=== PATIENT | female | born 2005 | race Caucasian/White ===

== ENCOUNTER 2024-03-05 11:06 | Emergency (ER) | payer MEDICAID, SELFPAY ==
[2024-03-05 11:38] VITALS: BP 147/81; PULSE 85; RESP 16; TEMP 37.4; O2SAT 98; BMI 32.4
--- NOTE | 2024-03-05 11:40 | XR_ITS ---
Examination: Knee, right , 3 views Technique: Knee AP, lateral, oblique 3 views Date and time of exam: March 05 2024-0 2 hours INDICATIONS: Patient fell today with into the right knee, right knee pain. FINDINGS: No fracture or dislocation Small knee effusion IMPRESSION: No fracture or dislocation
--- NOTE | 2024-03-05 11:41 | PD.EDLOWEX ---
Lower Extremity Injury RME/HPI General Chief Complaint: Extremity Injury, Lower Stated Complaint: RIGHT KNEE PAIN Time Seen by Provider: 03/05/24 11:40 Source: patient Arrival date/time: 03/05/24 11:06 18-year-old female known medical history presents to the emergency room with a chief complaint of right-sided knee pain that occurred after hitting herself on a coffee table 1 hour ago Mode of arrival: ambulatory Limitations: no limitations Related Data Home Medications ?Medication ?Instructions ?Recorded ?Confirmed diphenhydramine HCl 50 mg capsule 50 mg PO HS PRN Insomnia 04/03/22 04/03/22 (Banophen) fluoxetine 20 mg capsule 20 mg PO DAILY 04/03/22 04/03/22 Previous Rx's ?Medication ?Instructions ?Recorded ibuprofen 800 mg tablet 800 mg PO TID PRN pain #30 tabs 01/29/23 ibuprofen 800 mg tablet 800 mg PO TID PRN pain #30 tabs 01/30/23 ondansetron 4 mg disintegrating 4 mg PO Q8H PRN nausea and 01/30/23 tablet vomiting #10 tabs ibuprofen 800 mg tablet 800 mg PO TID PRN pain #30 tabs 06/25/23 ibuprofen 600 mg tablet 600 mg PO Q8H PRN fever or pain 10/06/23 #20 tabs Allergies Allergy/AdvReac Type Severity Reaction Status Date / Time orange Allergy Severe RASH, Verified 12/19/23 12:56 SWELLING Review of Systems Review of Systems Systems Reviewed: All systems reviewed, normal except as documented Constitutional Constitutional: Reports system reviewed and no additional complaints, except as documented, Denies fatigue, Denies fever(s), Denies headache(s) and Denies weakness Eyes Eyes: Reports system reviewed and no additional complaints, except as documented, Denies blurry vision and Denies change in vision ENT Ears, Nose, Mouth, and Throat: Reports system reviewed and no additional complaints, except as documented, Denies otalgia, Denies headache(s), Denies nasal congestion, Denies throat swelling and Denies vertigo Cardiovascular Cardiovascular: Reports system reviewed and no additional complaints, except as documented, Denies chest pain, Denies dyspnea and Denies dyspnea on exertion Respiratory Respiratory: Reports system reviewed and no additional complaints, except as documented, Denies chest congestion, Denies cough, Denies dyspnea, Denies dyspnea on exertion and Denies wheezing Gastrointestinal Gastrointestinal: Reports system reviewed and no additional complaints, except as documented, Denies abdominal pain, Denies cramping, Denies nausea and Denies vomiting Genitourinary Genitourinary: Reports system reviewed and no additional complaints, except as documented Musculoskeletal Musculoskeletal: Reports system reviewed and no additional complaints, except as documented, Reports arthralgias, Denies back pain and Reports joint swelling Integumentary/Breasts Skin/Breast: Reports system reviewed and no additional complaints, except as documented and Denies wounds Neurologic Neurologic: Reports system reviewed and no additional complaints, except as documented, Denies confusion, Denies headache(s), Denies lack of coordination, Denies vertigo and Denies weakness Psychiatric Psychiatric: Reports system reviewed and no additional complaints, except as documented, Denies anxiety, Denies confusion, Denies depression, Denies paranoia, Denies suicidal ideation and Denies tactile hallucinations Endocrine Endocrine: Reports system reviewed and no additional complaints, except as documented and Denies fatigue Hematologic/Lymphatic Hematologic/Lymphatic: Reports system reviewed and no additional complaints, except as documented and Denies lymphadenopathy Allergic/Immunologic Allergic/Immunologic: Reports system reviewed and no additional complaints, except as documented, Denies throat swelling, Denies urticaria and Denies wheezing ED Exam General Limitations: Present no limitations General appearance: Present alert and in no apparent distress Head Head exam: Present atraumatic Eye Eye exam: Present normal appearance, PERRL and EOMI ENT ENT exam: Present normal exam, normal oropharynx and mucous membranes moist Neck Neck exam: Present normal inspection, full ROM and trachea midline Chest Chest inspection: Present normal inspection and symmetric chest wall rise Respiratory Respiratory exam: Present normal lung sounds bilaterally Cardiovascular Cardiovascular exam: Present regular rate, normal rhythm and normal heart sounds Abdominal Exam Abdominal exam: Present soft and normal bowel sounds Extremities Exam Extremities exam: Present normal inspection and full ROM Expanded Lower Extremity Exam Hip/Pelvis exam: Present normal inspection Upper leg exam: Present normal inspection Knee exam: Present tenderness and swelling Lower leg exam: Present normal inspection Ankle exam: Present normal inspection Foot/toe exam: Present normal inspection Gait: observed and limited by pain Back Exam Back exam: Present normal inspection and full ROM Neurological Exam Neurological exam: Present alert, oriented X3 and CN II-XII intact Psychiatric Psychiatric exam: Present normal affect and normal mood Skin Skin exam: Present warm, dry, intact and normal color Course Quality Measures none Orders Category Date Time Status hipolito wrap [Splint / Immobilizer] STAT Care 03/05/24 13:01 Active XR knee RT 3V Stat Exams 03/05/24 11:40 Completed Vital Signs Vital signs: Vital Signs Temperature 99.3 F 03/05/24 11:38 Pulse Rate 85 03/05/24 11:38 Respiratory Rate 16 03/05/24 11:38 Blood Pressure 147/81 H 03/05/24 11:38 Pulse Oximetry (%) 98 03/05/24 11:38 Oxygen Delivery Method Room Air 03/05/24 11:38 O2 saturation 98% within normal limits Extremity Injury, Lower MDM Narrative MDM Narrative:: 18-year-old female known medical history presents to the emergency room with a chief complaint of right-sided knee pain that occurred after hitting herself on a coffee table 1 hour ago. Clinically the patient appears nontoxic and in no apparent distress. Physical examination shows mild tenderness and swelling to the right knee. X-ray was completed and was negative for any acute fracture. Patient was educated to follow-up with primary care provider and return to the emergency room for any evidence of worsening signs or symptoms Patient data External records reviewed:: [facility] previous records Clinical information provided by:: patient Social determinants that could affect healthcare access:: none Patient has the following chronic illnesses:: No chronic illness How is presenting disease/condition affected by chronic disease/condition?: no chronic disease Evaluation data The following diagnostics were reviewed and interpreted by me:: lab results and radiology exam(s) Lab and/or radiology exams considered but not ordered:: Labs and radiology exams considered and ordered Interpretation Summary: Right knee x-ray-no acute fracture Medications / Prescriptions Medications or Prescriptions considered but not ordered:: No medication given Medication administrations:: No medication given Consultations Consultation(s) initiated? (list below): No Diagnosis Extremity Injury, Lower Differential Diagnosis: ankle sprain and strain and other (Right knee fracture/right knee sprain) Most likely diagnosis given after review of the tests above:: Right knee sprain Admission Indicated Admission indicated?: not indicated Admission Request Was there a request for admission?: No Disposition Plan Disposition Plan: Discharge Discharge Attestation Discharge Attestation: The patient and all family members were given an opportunity to ask questions and understood the discharge instructions. Discharge instructions specifically effects, indications for sooner follow up or return to the emergency department, and the expected course of current diagnosis. Patient condition: Stable Discharge Plan Plan Patient Disposition: HOME (Self Care) Disposition Comment: Stable Prescriptions/Referrals Prescriptions/Med Rec: No Action diphenhydramine HCl [Banophen] 50 mg capsule 50 mg PO HS PRN (Reason: Insomnia) Patient Comments: TAKE 1 CAPSULE BY MOUTH ONCE DAILY AT BEDTIME NEEDED fluoxetine 20 mg capsule 20 mg PO DAILY Patient Comments: TAKE 1 CAPSULE BY MOUTH ONCE DAILY IN THE MORNING ibuprofen 800 mg tablet 800 mg PO TID PRN (Reason: pain) Qty: 30 0RF ondansetron 4 mg tablet,disintegrating 4 mg PO Q8H PRN (Reason: nausea and vomiting) Qty: 10 0RF ibuprofen 800 mg tablet 800 mg PO TID PRN (Reason: pain) Qty: 30 0RF ibuprofen 600 mg tablet 600 mg PO Q8H PRN (Reason: fever or pain) Qty: 20 0RF ibuprofen 800 mg tablet 800 mg PO TID PRN (Reason: pain) Qty: 30 0RF Referrals: Abhijit Desai MD [Primary Care Provider] - In 1 week Problem List Clinical Impression: Right knee sprain Patient/Caregiver Discharge Instructions Education Materials: ED Knee Sprain Additional Instructions: Please follow-up with your primary care provider in the next 24 to 48 hours. X-ray was completed and was negative for any acute fracture. For any evidence of worsening signs or symptoms please return to the emergency room immediately Print Language: Persian Stand Alone Forms: Kylie Award Info., Patient Portal Info Letter DORA/GERALDINE Supervising Physician DORA/GERALDINE Supervising Physician: Dr. Proctor
== END 2024-03-05 13:45 | disposition home or self-care (01) ==
PROVIDERS: Emergency Provider Emergency Medicine; PCP Family Medicine
DX: S83.91XA Sprain of unspecified site of right knee, initial encounter (principal); W22.03XA Walked into furniture, initial encounter
CPT/HCPCS: 73562; 99283

== ENCOUNTER 2024-03-18 10:28 | Emergency (ER) | payer MEDICAID, SELFPAY ==
--- NOTE | 2024-03-18 10:31 | EKG_ITS ---
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
[2024-03-18 10:50] VITALS: BP 123/70; PULSE 88; RESP 18; TEMP 36.9; O2SAT 97; BMI 33.6
--- NOTE | 2024-03-18 10:53 | XR_ITS ---
Examination: PA lateral chest 2 views TECHNIQUE: Upright PA lateral chest 2 views Exam date and time: March 18, 2024 1106 hours Comparison May 19, 2023 INDICATIONS: Arrhythmia chest pain squeezing sensation in the chest beginning one year ago worse since last night FINDINGS: Normal heart size Lungs are clear. The osseous structures are intact IMPRESSION: No active disease
--- NOTE | 2024-03-18 10:54 | PD.EDRME ---
Rapid Medical Screening Exam RME Arrival date/time: 03/18/24 10:28 18-year-old female presents to the emergency department complaints of dizziness chest pain and arm pain Chief Complaint: General Adult/Misc Complain Vital signs: Vital Signs Temperature 98.5 F 03/18/24 10:50 Pulse Rate 88 03/18/24 10:50 Respiratory Rate 18 03/18/24 10:50 Blood Pressure 123/70 03/18/24 10:50 Pulse Oximetry (%) 97 03/18/24 10:50 Oxygen Delivery Method Room Air 03/18/24 10:50
[2024-03-18 11:37] LABS: Basophils # (Auto) 0.1 Thou/mm3 (0.0-0.2); Basophils % (Auto) 1 % (0-2.5); Eosinophils # (Auto) 0.2 Thou/mm3 (0.0-0.5); Eosinophils % (Auto) 2 % (0-10); Hematocrit 39.5 % (36.0-46.0); Hemoglobin 13.5 g/dL (12.0-16.0); Immature Granulocytes % (Auto) 0 % (0-0); Immature Granulocytes Auto 0.02 Thou/mm3 (0.00-0.00); Lymphocytes # (Auto) 1.6 Thou/mm3 (1.0-5.0); Lymphocytes % (Auto) 15 % (10-50); Mean Corpuscular HGB Conc 34.2 g/dl (31.0-37.0); Mean Corpuscular Hemoglobin 29.3 pg (25.0-35.0); Mean Corpuscular Volume 86 fL (80-100); Monocytes # (Auto) 0.4 Thou/mm3 (0.0-0.8); Monocytes % (Auto) 4 % (0-12); Neutrophils # (Auto) 8.5 Thou/mm3 (1.8-7.7); Neutrophils % (Auto) 79 % (37-80); Nucleated Red Blood Cell % 0 /100 WBC (0); Platelet Count 402 Thou/mm3 (140-440); RDW Standard Deviation 39.8 fL (36.4-46.3); White Blood Count 10.8 Thou/mm3 (4.5-11.0)
[2024-03-18 11:56] LABS: Alanine Aminotransferase 22 U/L (10-49); Albumin, Serum 5.1 gm/dL (3.5-5.0); Albumin/Globulin Ratio 1.8 (1.2-2.2); Alkaline Phosphatase 63 U/L (46-116); Anion Gap 11 (7-16); Aspartate Amino Transferase 17 U/L (0-34); BUN/Creatinine Ratio 9 Ratio (12-20); Bilirubin,Total 0.4 mg/dL (0.3-1.2); Blood Urea Nitrogen 8 mg/dL (9-23); Carbon Dioxide 20.6 mMol/L (20.0-31.0); Chloride 108 mMol/L (98-107); Creatinine (Component) 0.9 mg/dL (0.6-1.3); Estimated Creatinine Clearance 104.6 mL/min (>60); Globulin 2.9 gm/dL (2.3-3.5); Glucose 110 mg/dL (74-106); Glucose Estimated Average 97 mg/dL (80-131); Osmolality,Calculated 278 (275-295); Potassium 3.9 mMol/L (3.4-5.1); Sodium 140 mMol/L (136-145); Troponin I < 0.002 ng/mL (0.0-0.045); eGFR > 60 See Note
[2024-03-18 12:04] LABS: HCG,Qualitative Serum Negative
--- NOTE | 2024-03-18 13:25 | PD.EDADULT ---
ED General RME/HPI General Chief complaint: General Adult/Misc Complain Stated complaint: LEFT ARM PAIN SINCE YESTERDAY, THEN CXP SINCE 2300 Time Seen by Provider: 03/18/24 13:21 Arrival date/time: 03/18/24 10:28 CC: Dizziness chest pain arm pain HPI RME / HPI RME / HPI narrative: 03/18/24 10:28 18-year-old female presents to the emergency department complaints of dizziness chest pain and arm pain HPI described as cramping sensation onset 11 PM last night lasting until 3 AM intermittent nature currently absent. Patient has a history of anxiety father bedside states the patient has had no cramping in the last 2 hours. Patient is awake alert oriented nontoxic-appearing not in any acute distress. Related Data Home Medications ?Medication ?Instructions ?Recorded ?Confirmed diphenhydramine HCl 50 mg capsule 50 mg PO HS PRN Insomnia 04/03/22 04/03/22 (Banophen) fluoxetine 20 mg capsule 20 mg PO DAILY 04/03/22 04/03/22 Previous Rx's ?Medication ?Instructions ?Recorded ibuprofen 800 mg tablet 800 mg PO TID PRN pain #30 tabs 01/29/23 ibuprofen 800 mg tablet 800 mg PO TID PRN pain #30 tabs 01/30/23 ondansetron 4 mg disintegrating 4 mg PO Q8H PRN nausea and 01/30/23 tablet vomiting #10 tabs ibuprofen 800 mg tablet 800 mg PO TID PRN pain #30 tabs 06/25/23 ibuprofen 600 mg tablet 600 mg PO Q8H PRN fever or pain 10/06/23 #20 tabs Allergies Allergy/AdvReac Type Severity Reaction Status Date / Time orange Allergy Severe RASH, Verified 03/18/24 10:31 SWELLING Review of Systems Review of Systems Narrative Review of Systems: GEN: No fever, no chills, no weight loss EYES: No discharge, no visual changes, no pain HEENT: No ear pain, no congestion, no sore throat PULM: No shortness of breath, no cough, no congestion CV: + chest pain, no dyspnea on exertion, no palpitations GI: No nausea, no vomiting, no diarrhea, no pain, no constipation : No frequency, no urgency, no dysuria MUSC/SKEL: No joint pain, no back pain SKIN: No rash PSYCH: No hallucinations, no depression HEME/LYMPH: No easy bleeding or bruising tendencies NEURO: No weakness, no headache Past Medical History Past Medical History CARDIAC: Negative Congestive Heart Failure RESPIRATORY: Negative Chronic Obstructive Pulmonary Disease (COPD) GENITOURINARY: Negative Renal Disease ENDOCRINE: Negative Diabetes Mellitus Type 1 or Diabetes Mellitus Type 2 PSYCHO/SOCIAL: Positive Depression and Anxiety Social History SMOKING STATUS: Heavy (> 1 pack/day) SUBSTANCE USE: marijuana ED Exam Narrative Physical exam: [General: Obese, anxious but not in any acute distress Head normocephalic HEENT: Within acceptable limits Neck is supple nontender Chest equal chest rise nontender to palpation Respiratory: Clear to auscultation no wheezes crackles or rubs CV: Rate rhythm is regular no murmurs rubs or clicks Abdomen is distended secondary to body habitus soft nontender no masses positive bowel sounds all 4 quadrants Back: No CVA tenderness no spinous process tenderness from cervical spine thoracic and lumbar spine Skin: Intact no petechiae rash induration ulceration or crepitus Extremities: Moving all extremity against resistance cap refill less than 2 seconds neurosensory intact Neuro: Awake alert oriented x3 Glascow coma 15 no focal deficits] Course Quality Measures VTE prophylaxis Orders Category Date Time Status EKG (ED ONLY) *Do not use* NOW Care 03/18/24 10:31 Completed EKG (ED Only) Stat Exams 03/18/24 10:31 Draft XR chest 2V Stat Exams 03/18/24 10:53 Completed A1C [Glycohemoglobin w (eAG)] Stat Lab 03/18/24 11:22 Completed CBC Stat Lab 03/18/24 11:22 Completed Comprehensive Metabolic Panel Stat Lab 03/18/24 11:22 Completed HCG,Qualitative Serum Stat Lab 03/18/24 11:22 Completed Troponin I Stat Lab 03/18/24 11:22 Completed Vital Signs Vital signs: Vital Signs Temperature 98.5 F 03/18/24 10:50 Pulse Rate 88 03/18/24 10:50 Respiratory Rate 18 03/18/24 10:50 Blood Pressure 123/70 03/18/24 10:50 Pulse Oximetry (%) 97 03/18/24 10:50 Oxygen Delivery Method Room Air 03/18/24 10:50 [facility] Patient data External records reviewed:: [facility] previous records Clinical information provided by:: patient and parent Social determinants that could affect healthcare access:: none Patient has the following chronic illnesses:: Anxiety How is presenting disease/condition affected by chronic disease/condition?: exacerbated by Evaluation data The following diagnostics were reviewed and interpreted by me:: lab results and radiology exam(s) Lab and/or radiology exams considered but not ordered:: EKG performed at 1049 shows a ventricular rate of 101 MN interval 1515 QRS of 75 QTc of 353 sinus tachycardia. CBC shows no acute leukocytosis anemia thrombocytopenia CMP shows no significant electrolyte imbalances renal impairment transaminitis or T. bili elevation. Chest x-ray as interpreted by me read by radiology as negative for any acute finding. Interpretation Summary: Chest wall pain possible cramping Medications Medications considered but not ordered:: None none Medication administrations:: None Consultations Consultation(s) initiated? (list below): No Diagnosis Differential Diagnosis ED Complaint MDM: Costochondritis intercostal irritation pleuritic pain Most likely diagnosis given after review of the tests above:: Chest wall pain Admission Indicated Admission indicated?: not indicated Explain why admission is indicated or not indicated:: Stable for outpatient follow-up Admission Request Was there a request for admission?: No Disposition Plan Disposition Plan: Discharge Discharge Attestation Discharge Attestation: The patient and all family members were given an opportunity to ask questions and understood the discharge instructions. Discharge instructions specifically effects, indications for sooner follow up or return to the emergency department, and the expected course of current diagnosis. Patient condition: Stable Medical Decision Making Differential Diagnosis Differential Diagnosis: Costochondritis intercostal irritation pleuritic pain Lab Data 03/18/24 11:22 03/18/24 11:22 Labs: Lab Results 03/18/24 Range/Units 11:22 WBC 10.8 (4.5-11.0) Thou/mm3 RBC 4.60 (4.00-5.20) Miln/mm3 Hgb 13.5 (12.0-16.0) g/dL Hct 39.5 (36.0-46.0) % MCV 86 (80-100) fL MCH 29.3 (25.0-35.0) pg MCHC 34.2 (31.0-37.0) g/dl RDW Std Deviation 39.8 (36.4-46.3) fL Plt Count 402 (140-440) Thou/mm3 Neut % (Auto) 79 (37-80) % Lymph % (Auto) 15 (10-50) % [place] % (Auto) 4 (0-12) % Eos % (Auto) 2 (0-10) % Baso % (Auto) 1 (0-2.5) % Neut # (Auto) 8.5 H (1.8-7.7) Thou/mm3 Lymph # (Auto) 1.6 (1.0-5.0) Thou/mm3 [place] # (Auto) 0.4 (0.0-0.8) Thou/mm3 Eos # (Auto) 0.2 (0.0-0.5) Thou/mm3 Baso # (Auto) 0.1 (0.0-0.2) Thou/mm3 Immature Gran # (Auto) 0.02 H (0.00-0.00) Thou/mm3 Absolute Nucleated RBC 0.00 (0.00-0.00) Thou/mm3 Immature Gran % 0 (0-0) % Nucleated RBC % 0 (0) /100 WBC Sodium 140 (136-145) mMol/L Potassium 3.9 (3.4-5.1) mMol/L Chloride 108 H (98-107) mMol/L Carbon Dioxide 20.6 (20.0-31.0) mMol/L Anion Gap 11 (7-16) BUN 8 L (9-23) mg/dL Creatinine 0.9 (0.6-1.3) mg/dL Estim Creat Clear Calc 104.6 (>60) mL/min eGFR > 60 (60 - ) See Note BUN/Creatinine Ratio 9 L (12-20) Ratio Glucose 110 H (74-106) mg/dL Estimated Ave Glu mg/dL 97 (80-131) mg/dL Hemoglobin A1c 5.0 (4.8-6.0) % Hgb Calculated Osmolality 278 (275-295) Calcium 10.0 (8.3-10.6) mg/dL Corrected Calcium 10.0 (8.5-10.1) mg/dL Total Bilirubin 0.4 (0.3-1.2) mg/dL AST 17 (0-34) U/L ALT 22 (10-49) U/L Alkaline Phosphatase 63 (46-116) U/L Troponin I < 0.002 (0.0-0.045) ng/mL Total Protein 8.0 (5.7-8.2) gm/dL Albumin 5.1 H (3.5-5.0) gm/dL Globulin 2.9 (2.3-3.5) gm/dL Albumin/Globulin Ratio 1.8 (1.2-2.2) HCG, Qual Negative Discharge Plan Plan Patient Disposition: HOME (Self Care) Patient condition on transfer: Stable Prescriptions/Referrals Prescriptions/Med Rec: No Action diphenhydramine HCl [Banophen] 50 mg capsule 50 mg PO HS PRN (Reason: Insomnia) Patient Comments: TAKE 1 CAPSULE BY MOUTH ONCE DAILY AT BEDTIME NEEDED fluoxetine 20 mg capsule 20 mg PO DAILY Patient Comments: TAKE 1 CAPSULE BY MOUTH ONCE DAILY IN THE MORNING ibuprofen 800 mg tablet 800 mg PO TID PRN (Reason: pain) Qty: 30 0RF ondansetron 4 mg tablet,disintegrating 4 mg PO Q8H PRN (Reason: nausea and vomiting) Qty: 10 0RF ibuprofen 800 mg tablet 800 mg PO TID PRN (Reason: pain) Qty: 30 0RF ibuprofen 600 mg tablet 600 mg PO Q8H PRN (Reason: fever or pain) Qty: 20 0RF ibuprofen 800 mg tablet 800 mg PO TID PRN (Reason: pain) Qty: 30 0RF Referrals: Abhijit Desai MD [Primary Care Provider] - In 1 week Problem List Clinical Impression: Chest wall pain Patient/Caregiver Discharge Instructions Education Materials: ED Chest Pain, Noncardiac Additional Instructions: Ibuprofen or Tylenol acute diarrhea over the reoccurrence of these follow-up with your primary care doctor. Print Language: Latvian Stand Alone Forms: Kylie Award Info., Patient Portal Info Letter PA/CLOTHING PATTERN PREPARER Supervising Physician PA/CLOTHING PATTERN PREPARER Supervising Physician: Jatinder Napoles ENP
[2024-03-18 14:19] VITALS: BP 125/74; PULSE 76; RESP 19; TEMP 37.1; O2SAT 99
== END 2024-03-18 14:26 | disposition home or self-care (01) ==
PROVIDERS: Nurse Practitioner Primary Care; Emergency Provider Emergency Medicine; PCP Family Medicine
DX: R07.89 Other chest pain (principal); R00.0 Tachycardia, unspecified
CPT/HCPCS: 36415; 71046; 80053; 83036; 84484; 84703; 85025; 93005; 99283

== ENCOUNTER 2024-03-18 21:35 | Emergency (ER) | payer MEDICAID, SELFPAY ==
[2024-03-18 21:37] VITALS: BMI 33.6
[2024-03-18 22:09] VITALS: BP 142/88; PULSE 111; RESP 18; TEMP 37.6; O2SAT 99
--- NOTE | 2024-03-18 22:27 | PD.EDRME ---
Rapid Medical Screening Exam RME Arrival date/time: 03/18/24 21:35 18-year-old female presents emergency department complaining of sore throat and chest pain. Chief Complaint: Anxiety Time Seen by Provider: 03/18/24 22:23 Vital signs: Vital Signs Temperature 99.6 F 03/18/24 22:09 Pulse Rate 111 H 03/18/24 22:09 Respiratory Rate 18 03/18/24 22:09 Blood Pressure 142/88 H 03/18/24 22:09 Pulse Oximetry (%) 99 03/18/24 22:09 Oxygen Delivery Method Room Air 03/18/24 22:09 Vital signs reviewed by provider: Yes
[2024-03-18 23:00] LABS: Strep A Rapid Negative (Negative)
[2024-03-18 23:36] LABS: Amphetamine/Methamp Scrn,U Negative (Negative); Barbiturate Screen,Urine Negative (Negative); Benzodiazepines Screen,Urine Negative (Negative); Benzoylecgonine Screen, Ur Negative (Negative); Fentanyl Screen,Urine Negative (Negative); Opiate Screen,Urine Negative (Negative); THC Screen,Urine Positive (Negative)
--- NOTE | 2024-03-18 23:53 | EDNOTE_ITS ---
ED Anxiety RME/HPI General Chief Complaint: Anxiety Stated Complaint: ''IM HAVING A HEART ATTACK Time Seen by Provider: 03/18/24 22:23 Source: patient Arrival date/time: 03/18/24 21:35 18-year-old female presents emergency department complaining of sore throat and chest pain. Patient reports was seen earlier today in the ER and then discharged. Patient reports is still having some chest pain but now reports has a sore throat. Patient reports has history of anxiety and is a daily smoker of cigarettes and marijuana. Mode of arrival: ambulatory Limitations: no limitations RME / HPI RME / HPI narrative: 03/18/24 21:35 18-year-old female presents emergency department complaining of sore throat and chest pain. Related Data Home Medications ?Medication ?Instructions ?Recorded ?Confirmed diphenhydramine HCl 50 mg capsule 50 mg PO HS PRN Insomnia 04/03/22 04/03/22 (Banophen) fluoxetine 20 mg capsule 20 mg PO DAILY 04/03/22 04/03/22 Previous Rx's ?Medication ?Instructions ?Recorded ibuprofen 800 mg tablet 800 mg PO TID PRN pain #30 tabs 01/29/23 ibuprofen 800 mg tablet 800 mg PO TID PRN pain #30 tabs 01/30/23 ondansetron 4 mg disintegrating 4 mg PO Q8H PRN nausea and 01/30/23 tablet vomiting #10 tabs ibuprofen 800 mg tablet 800 mg PO TID PRN pain #30 tabs 06/25/23 ibuprofen 600 mg tablet 600 mg PO Q8H PRN fever or pain 10/06/23 #20 tabs ibuprofen 600 mg tablet 600 mg PO Q8H PRN pain #20 tabs 03/18/24 Allergies Allergy/AdvReac Type Severity Reaction Status Date / Time orange Allergy Severe RASH, Verified 03/18/24 10:31 SWELLING Review of Systems Review of Systems Systems Reviewed: All systems reviewed, normal except as documented Constitutional Constitutional: Reports system reviewed and no additional complaints, except as documented, Denies body ache(s), Denies chills and Denies fever(s) Eyes Eyes: Reports system reviewed and no additional complaints, except as documented and Denies change in vision ENT Ears, Nose, Mouth, and Throat: Reports system reviewed and no additional complaints, except as documented, Denies disequilibrium, Denies dizziness, Reports sore throat and Denies vertigo Cardiovascular Cardiovascular: Reports system reviewed and no additional complaints, except as documented, Reports chest pain and Denies dyspnea Respiratory Respiratory: Reports system reviewed and no additional complaints, except as documented, Denies chest congestion, Denies cough and Denies dyspnea Gastrointestinal Gastrointestinal: Reports system reviewed and no additional complaints, except as documented, Denies abdominal pain, Denies nausea and Denies vomiting Musculoskeletal Musculoskeletal: Reports system reviewed and no additional complaints, except as documented, Denies abnormal gait and Denies arthralgias Integumentary/Breasts Skin/Breast: Reports system reviewed and no additional complaints, except as documented, Denies erythema, Denies rash and Denies wounds Neurologic Neurologic: Reports system reviewed and no additional complaints, except as documented, Denies abnormal gait, Denies disequilibrium, Denies dizziness and Denies vertigo Past Medical History Past Medical History CARDIAC: Negative Congestive Heart Failure RESPIRATORY: Negative Chronic Obstructive Pulmonary Disease (COPD) GENITOURINARY: Negative Renal Disease ENDOCRINE: Negative Diabetes Mellitus Type 1 or Diabetes Mellitus Type 2 PSYCHO/SOCIAL: Positive Depression and Anxiety Social History SMOKING STATUS: Current every day smoker SUBSTANCE USE: marijuana ED Exam General Limitations: Present no limitations General appearance: Present alert and in no apparent distress Head Head exam: Present atraumatic Eye Eye exam: Present normal appearance, PERRL and EOMI ENT ENT exam: Present normal exam, normal oropharynx and mucous membranes moist Expanded ENT Exam Throat exam: Present tonsillar erythema; Absent tonsillomegaly or tonsillar exudate Neck Neck exam: Present normal inspection, full ROM and trachea midline Chest Chest inspection: Present normal inspection and symmetric chest wall rise Respiratory Respiratory exam: Present normal lung sounds bilaterally Cardiovascular Cardiovascular exam: Present regular rate, normal rhythm and normal heart sounds Abdominal Exam Abdominal exam: Present soft and normal bowel sounds Extremities Exam Extremities exam: Present normal inspection and full ROM Back Exam Back exam: Present normal inspection and full ROM Neurological Exam Neurological exam: Present alert, oriented X3 and CN II-XII intact Psychiatric Psychiatric exam: Present normal affect and normal mood Skin Skin exam: Present warm, dry, intact and normal color Course Quality Measures none Orders Category Date Time Status EKG (ED ONLY) *Do not use* NOW Care 03/18/24 22:27 Completed EKG (ED Only) Stat Exams 03/18/24 22:27 Ordered Drug Screen,Urine Stat Lab 03/18/24 23:00 Completed Strep A Rapid Stat Lab 03/18/24 22:43 Completed Vital Signs Vital signs: Vital Signs Temperature 99.6 F 03/18/24 22:09 Pulse Rate 111 H 03/18/24 22:09 Respiratory Rate 18 03/18/24 22:09 Blood Pressure 142/88 H 03/18/24 22:09 Pulse Oximetry (%) 99 03/18/24 22:09 Oxygen Delivery Method Room Air 03/18/24 22:09 99% room air within normal limits Anxiety MDM Narrative MDM Narrative: 18-year-old female presents emergency department complaining of sore throat and chest pain. Patient reports was seen earlier today in the ER and then discharged. Patient reports is still having some chest pain but now reports has a sore throat. Patient reports has history of anxiety and is a daily smoker of cigarettes and marijuana. Patient GCS 15 and appears anxious. EKG sinus tach 119. Patient appears to be in any respiratory distress with no adventitious lung sounds on auscultation. Strep swab negative. Patient data External records reviewed:: [facility] previous records Clinical information provided by:: patient Social determinants that could affect healthcare access:: none Patient has the following chronic illnesses:: See chart How is presenting disease/condition affected by chronic disease/condition?: exacerbated by Evaluation data The following diagnostics were reviewed and interpreted by me:: lab results and EKG tracing(s) Lab and/or radiology exams considered but not ordered:: Ordered Interpretation Summary: Interpreted by me Medications / Prescriptions Medications or Prescriptions considered but not ordered:: N/A Medication administrations:: N/A Consultations Consultation(s) initiated? (list below): No Diagnosis Differential diagnosis anxiety: acute anxiety Most likely diagnosis given after review of the tests above:: Viral infection Anxiety Marijuana use Admission Indicated Admission indicated?: not indicated Admission Request Was there a request for admission?: No Disposition Plan Disposition Plan: Discharge Discharge Attestation Discharge Attestation: The patient and all family members were given an opportunity to ask questions and understood the discharge instructions. Discharge instructions specifically effects, indications for sooner follow up or return to the emergency department, and the expected course of current diagnosis. Patient condition: Stable Discharge Plan Plan Patient Disposition: HOME (Self Care) Disposition Comment: Stable Prescriptions/Referrals Prescriptions/Med Rec: New ibuprofen 600 mg tablet 600 mg PO Q8H PRN (Reason: pain) Qty: 20 0RF No Action diphenhydramine HCl [Banophen] 50 mg capsule 50 mg PO HS PRN (Reason: Insomnia) Patient Comments: TAKE 1 CAPSULE BY MOUTH ONCE DAILY AT BEDTIME NEEDED fluoxetine 20 mg capsule 20 mg PO DAILY Patient Comments: TAKE 1 CAPSULE BY MOUTH ONCE DAILY IN THE MORNING ibuprofen 800 mg tablet 800 mg PO TID PRN (Reason: pain) Qty: 30 0RF ondansetron 4 mg tablet,disintegrating 4 mg PO Q8H PRN (Reason: nausea and vomiting) Qty: 10 0RF ibuprofen 800 mg tablet 800 mg PO TID PRN (Reason: pain) Qty: 30 0RF ibuprofen 600 mg tablet 600 mg PO Q8H PRN (Reason: fever or pain) Qty: 20 0RF ibuprofen 800 mg tablet 800 mg PO TID PRN (Reason: pain) Qty: 30 0RF Problem List Clinical Impression: Viral infection, Anxiety, Marijuana use Patient/Caregiver Discharge Instructions Education Materials: ED Anxiety Reaction, ED Viral Syndrome (Adult) Additional Instructions: Drink plenty of fluids and get plenty of rest. Avoids smoking if possible. Take Tylenol or ibuprofen as needed for pain. Follow-up with primary care provider in 2 to 3 days. Return to the emergency department for any worsening symptoms or as needed. Print Language: Mozambican Stand Alone Forms: Kylie Award Info., Patient Portal Info Letter PA/GERALDINE Supervising Physician DORA/GERALDINE Supervising Physician: Dr. Cordero
== END 2024-03-19 00:05 | disposition home or self-care (01) ==
LOC: SERX 03-19 00:21
PROVIDERS: Emergency Provider Emergency Medicine
DX: B34.9 Viral infection, unspecified (principal); F12.980 Cannabis use, unspecified with anxiety disorder
CPT/HCPCS: 80307; 87651; 93005; 99283

== ENCOUNTER 2024-05-23 15:50 | Emergency (ER) | payer MEDICAID, SELFPAY ==
[2024-05-23 16:07] VITALS: BP 151/91; PULSE 109; RESP 18; TEMP 37.3; O2SAT 99; BMI 33.6
--- NOTE | 2024-05-23 16:27 | EKG_ITS ---
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) Nicho Order Number: [id number] Reading MD: Tete Monsalve ([facility]) Nicho Measurements Intervals [place] Rate: 93 P: 67 LA: 120 QRS: 92 QRSD: 85 T: 46 QT: 318 QTc: 397 Interpretive Statements SINUS RHYTHM WITH MARKED SINUS ARRHYTHMIA BORDERLINE RIGHT AXIS DEVIATION [QRS AXIS > 90] Compared to ECG 03/18/2024 10:49:19 Sinus tachycardia no longer present Short LA interval no longer present /store/[id number].pdf
--- NOTE | 2024-05-23 16:27 | XR_ITS ---
Examination: PA lateral chest 2 views TECHNIQUE: Portable PA lateral chest 2 views INDICATIONS: Chest pain today. FINDINGS: Normal heart size Lungs are clear. The osseous structures are intact IMPRESSION: No active disease
--- NOTE | 2024-05-23 16:30 | PD.EDRME ---
Rapid Medical Screening Exam E Arrival date/time: 05/23/24 15:50 18-year-old female presents to the emergency department with complaints of chest pain. I have greeted and performed a focused initial assessment of this patient. Initial appropriate labs ordered at this time. A comprehensive ED assessment and evaluation of the patient and analysis of all test and completion of medical decision making process will be conducted by additional ED provider. Chief Complaint: Chest Pain Time Seen by Provider: 05/23/24 16:06 Vital signs: Vital Signs Temperature 99.1 F 05/23/24 16:07 Pulse Rate 109 H 05/23/24 16:07 Respiratory Rate 18 05/23/24 16:07 Blood Pressure 151/91 H 05/23/24 16:07 Pulse Oximetry (%) 99 05/23/24 16:07 Oxygen Delivery Method Room Air 05/23/24 16:07
[2024-05-23 16:59] LABS: Basophils # (Auto) 0.1 Thou/mm3 (0.0-0.2); Basophils % (Auto) 1 % (0-2.5); Eosinophils # (Auto) 0.2 Thou/mm3 (0.0-0.5); Eosinophils % (Auto) 1 % (0-10); Hematocrit 37.9 % (36.0-46.0); Hemoglobin 12.8 g/dL (12.0-16.0); Immature Granulocytes % (Auto) 0 % (0-0); Immature Granulocytes Auto 0.04 Thou/mm3 (0.00-0.00); Lymphocytes # (Auto) 2.8 Thou/mm3 (1.0-5.0); Lymphocytes % (Auto) 20 % (10-50); Mean Corpuscular HGB Conc 33.8 g/dl (31.0-37.0); Mean Corpuscular Hemoglobin 28.8 pg (25.0-35.0); Mean Corpuscular Volume 85 fL (80-100); Monocytes # (Auto) 0.7 Thou/mm3 (0.0-0.8); Monocytes % (Auto) 5 % (0-12); Neutrophils # (Auto) 9.7 Thou/mm3 (1.8-7.7); Neutrophils % (Auto) 72 % (37-80); Nucleated Red Blood Cell % 0 /100 WBC (0); Platelet Count 411 Thou/mm3 (140-440); RDW Standard Deviation 40.4 fL (36.4-46.3); Red Blood Count 4.44 Miln/mm3 (4.00-5.20); White Blood Count 13.5 Thou/mm3 (4.5-11.0)
[2024-05-23 17:08] LABS: Collection Type, Urine Clean Catch
[2024-05-23 17:09] LABS: Alanine Aminotransferase 21 U/L (10-49); Albumin, Serum 4.7 gm/dL (3.5-5.0); Albumin/Globulin Ratio 1.7 (1.2-2.2); Alkaline Phosphatase 71 U/L (46-116); Anion Gap 7 (7-16); Aspartate Amino Transferase 17 U/L (0-34); BUN/Creatinine Ratio 9 Ratio (12-20); Bilirubin,Total 0.4 mg/dL (0.3-1.2); Blood Urea Nitrogen 8 mg/dL (9-23); Carbon Dioxide 27.1 mMol/L (20.0-31.0); Chloride 107 mMol/L (98-107); Creatinine (Component) 0.9 mg/dL (0.6-1.3); Estimated Creatinine Clearance 108.5 mL/min (>60); Globulin 2.8 gm/dL (2.3-3.5); Glucose 102 mg/dL (74-106); Lipase 34 U/L (12-53); Osmolality,Calculated 279 (275-295); Potassium 4.1 mMol/L (3.4-5.1); Sodium 141 mMol/L (136-145); Total Protein 7.5 gm/dL (5.7-8.2); Troponin I < 0.002 ng/mL (0.0-0.045); eGFR > 60 See Note
[2024-05-23 17:16] LABS: HCG,Qualitative Serum Negative
[2024-05-23 17:17] LABS: Amorphous Crystals,Urine Present (Absent); Bacteria,Urine Rare; Bilirubin,Urine Negative (Negative); Blood,Urine Trace (Negative); Clarity,Urine Clear (Clear/Hazy); Color,Urine Yellow (Lt Yel-Yel); Glucose, Urine Negative (Negative); Hyaline Casts,Urine < 1 /hpf (0-1); Ketones,Urine Negative (Negative); Leukocyte Esterase,Urine Negative (Negative); Nitrite,Urine Negative (Negative); PH,Urine 6.5 (5.0-7.0); Protein,Urine Trace (Neg - Trace); RBC,Urine 3 /hpf (0-3); Specific Gravity,Urine 1.029 (1.001-1.035); Squamous Epithelial Cell,Urine 1 /hpf (0-5); WBC,Urine 2 /hpf (0-5)
--- NOTE | 2024-05-23 19:30 | EDNOTE_ITS ---
ED Chest Pain RME/HPI General Chief Complaint: Chest Pain Stated Complaint: CHEST PAIN, HEADACHE, SHARP LEFT ARM PAIN Time Seen by Provider: 05/23/24 16:06 Arrival date/time: 05/23/24 15:50 RME / HPI RME / HPI narrative: 18-year-old female patient with no significant past medical history, came in for evaluation regarding left-sided chest pain. Onset of symptoms earlier today more than 3 hours prior to ER visit as left-sided chest pain, started as left forearm pain, radiating to the left chest described as sharp pain severity moderate associated with headache. Denies any shortness of breath denies any other complaints. Related Data Home Medications ?Medication ?Instructions ?Recorded ?Confirmed diphenhydramine HCl 50 mg capsule 50 mg PO HS PRN Inso mnia 04/03/22 04/03/22 (Banophen) fluoxetine 20 mg capsule 20 mg PO DAILY 04/03/2208/18 Previous Rx's ?Medication ?Instructions ?Recorded ibuprofen 800 mg tablet 800 mg PO TID PRN pain #30 t abs 01/29/23 ibuprofen 800 mg tablet 800 mg PO TID PRN pain #30 t abs 01/30/23 ondansetron 4 mg disintegrating 4 mg PO Q8H PRN nausea and 01/30/23 tablet vomiting #10 tabs ibuprofen 800 mg tablet 800 mg PO TID PRN pain #30 t abs 06/25/23 ibuprofen 600 mg tablet 600 mg PO Q8H PRN fever or p ain 10/06/23 #20 tabs ibuprofen 600 mg tablet 600 mg PO Q8H PRN pain #20 t abs 03/18/24 naproxen 500 mg tablet (Naprosyn) 500 mg PO BID PRN pa in #30 tabs 05/23/24 Allergies Allergy/AdvReac Type Severity Reaction Status Date / Time orange Allergy Severe RASH, Verified 05/23/24 15:52 SWELLING Penicillins Allergy Intermediate SOB Verified 05/23/24 15:52 Review of Systems Review of Systems Narrative Review of Systems: Review of system reviewed and within normal limits except mentioned in HPI ED Exam Narrative Physical exam: VITAL SIGNS: Reviewed. GENERAL APPEARANCE: Alert and interactive, follows commands, no acute distress, HEAD AND FACE: Non-traumatic. ENT: PERRL, pink conjunctivitis, eyelid no trauma, Mucous membrane moist. NECK: Supple, nontender, no nuchal rigidity. CHEST: No tenderness, no crepitus, no paradoxical movement, no retractions. LUNGS: Clear, well ventilated, symmetric, no rales, no wheezing, no ronchi, no stridor, good breath sounds bilaterally. HEART: Regular rate, regular rhythm, no murmur, no gallops. ABDOMEN: Soft, positive bowel sounds, nondistended, no guarding, nontender, no rebound, no masses, RECTAL: Deferred. GENITAL: Deferred. NEUROLOGICAL: Gross motor function intact sensory function intact, Appropriate for age. MUSCULOSKELETAL: low back nontender, full range of motion. EXTREMITIES: Nontender, full range of motion. SKIN: Color pink, dry, no rash, no lacerations, no abrasions, no contusions. LYMPHATICS: Deferred. Course Quality Measures none Orders Category Date Time Status EKG (ED ONLY) *Do not use* NOW Care 05/23/24 16:27 Completed NPO STAT Care 05/23/24 16:27 Active EKG (ED Only) Stat Exams 05/23/24 16:27 Draft XR chest 2V Stat Exams 05/23/24 16:27 Completed CBC Stat Lab 05/23/24 16:37 Completed Comprehensive Metabolic Panel Stat Lab 05/23/24 16:37 Completed HCG,Qualitative Serum Stat Lab 05/23/24 16:37 Completed Lipase Stat Lab 05/23/24 16:37 Completed Troponin I Stat Lab 05/23/24 16:37 Completed Urinalysis Stat Lab 05/23/24 16:59 Completed Vital Signs Vital signs: Vital Signs Temperature 99.1 F 05/23/24 16:07 Pulse Rate 109 H 05/23/24 16:07 Respiratory Rate 18 05/23/24 16:07 Blood Pressure 151/91 H 05/23/24 16:07 Pulse Oximetry (%) 99 05/23/24 16:07 Oxygen Delivery Method Room Air 05/23/24 16:07 Chest Pain MDM Narrative MDM Narrative:: 10-year-old male patient was brought in for evaluation regarding laceration to the left thumb. Patient was helping his dad cutting trees outside the house, and accidentally got injured with an electric stove. Patient sustained a 1 cm gaping laceration to the tongue able to bend and extend the tongue without any limitation. Tetanus vaccination is up-to-date. Patient's cardiac workup today all came back normal troponin is normal EKG came back with normal sinus rhythm, ventricular rate of 93 beats minute, no ST segm ent ovation depression noted. I personally reviewed and interpreted the x-ray of this patient. There is no acute abnormalities found, no infiltrates no pneumothorax no hemothorax normal chest x-ray. Review of other structures was without significant abnormal findings also. I additionally reviewed the radiologist report and agree with the interpretation. Prior to discharge patient chest pain or forearm pain is totally gone. Patient appears nontoxic and hemodynamically stable. Patient discharged home and instructed to follow-up with primary care provider in 24 to 48 hours. Instructed to return to the emergency department immediately if worsening of symptoms Patient data External records reviewed:: None Clinical information provided by:: none Social determinants that could affect healthcare access:: none Patient has the following chronic illnesses:: None How is presenting disease/condition affected by chronic disease/condition?: no chronic disease Evaluation data The following diagnostics were reviewed and interpreted by me:: lab results, radiology exam(s) and EKG tracing(s) Lab and/or radiology exams considered but not ordered:: None Interpretation Summary: See results in MDM Medications / Prescriptions Medications or Prescriptions considered but not ordered:: None Medication administrations:: None Consultations Consultation(s) initiated? (list below): No Diagnosis Chest Pain Differential Diagnosis: atypical chest pain, costochondritis and chest pain Most likely diagnosis given after review of the tests above:: Chest pain, muscular Admission Indicated Admission indicated?: not indicated Admission Request Was there a request for admission?: No Disposition Plan Disposition Plan: Discharge Discharge Attestation Discharge Attestation: The patient and all family members were given an opportunity to ask questions and understood the discharge instructions. Discharge instructions specifically effects, indications for sooner follow up or return to the emergency department, and the expected course of current diagnosis. Patient condition: Stable Discharge Plan Plan Patient Disposition: HOME (Self Care) Disposition Comment: stable Prescriptions/Referrals Prescriptions/Med Rec: New naproxen [Naprosyn] 500 mg tablet 500 mg PO BID PRN (Reason: pain) Qty: 30 0RF No Action diphenhydramine HCl [Banophen] 50 mg capsule 50 mg PO HS PRN (Reason: Insomnia) Patient Comments: TAKE 1 CAPSULE BY MOUTH ONCE DAILY AT BEDTIME NEEDED fluoxetine 20 mg capsule 20 mg PO DAILY Patient Comments: TAKE 1 CAPSULE BY MOUTH ONCE DAILY IN THE MORNING ibuprofen 800 mg tablet 800 mg PO TID PRN (Reason: pain) Qty: 30 0RF ondansetron 4 mg tablet,disintegrating 4 mg PO Q8H PRN (Reason: nausea and vomiting) Qty: 10 0RF ibuprofen 800 mg tablet 800 mg PO TID PRN (Reason: pain) Qty: 30 0RF ibuprofen 600 mg tablet 600 mg PO Q8H PRN (Reason: fever or pain) Qty: 20 0RF ibuprofen 800 mg tablet 800 mg PO TID PRN (Reason: pain) Qty: 30 0RF ibuprofen 600 mg tablet 600 mg PO Q8H PRN (Reason: pain) Qty: 20 0RF Referrals: Pati Lance PA-C [Primary Care Provider] - In 1 week Problem List Clinical Impression: Muscular chest pain Patient/Caregiver Discharge Instructions Discharge Activity: activity as tolerated Education Materials: ED Chest Pain, Noncardiac Additional Instructions: Thank you for the opportunity for serving you today. You are stable for discharged . You are advised to: Follow-up with your PCP in 1 to 2 days Return to ED for worsening of symptoms Increase oral fluids Take medication as prescribed Print Language: [place] Stand Alone Forms: Kylie Award Info., Patient Portal Info Letter DORA/GERALDINE Supervising Physician DORA/GERALDINE Supervising Physician: MD Solo
[2024-05-23 21:57] VITALS: BP 116/66; PULSE 77; RESP 18; O2SAT 99
== END 2024-05-23 21:58 | disposition home or self-care (01) ==
PROVIDERS: Nurse Practitioner Primary Care; Emergency Provider Emergency Medicine; PCP Physician Assistant Medical
DX: R07.89 Other chest pain (principal); I49.8 Other specified cardiac arrhythmias
CPT/HCPCS: 36415; 71046; 80053; 81001; 83690; 84484; 84703; 85025; 93005; 99283

== ENCOUNTER → 2024-05-27 | Outpatient (CLI) | payer MEDICAID, SELFPAY | END | disposition home or self-care (01) | LOC: SRTX 08:12 | PROVIDERS: PCP Physician Assistant Medical; Referring Provider Physician Assistant Medical; Visit Provider Physician Assistant Medical | DX: R55 Syncope and collapse (principal) | CPT/HCPCS: 95816 ==

== ENCOUNTER → 2024-07-04 | Outpatient (CLI) | payer MEDICAID, SELFPAY ==
[2024-07-04 11:37] LABS: HCG Qualitative,Urine Negative
--- NOTE | 2024-07-04 12:00 | XR_ITS ---
Examination: MRI of brain without intravenous contrast. MRI brain with intravenous contrast. Date and time of exam:July 04, 2024 1211 hours INDICATIONS: Recurrent syncopal episodes headaches leukocytosis of blurred vision balance issues beginning 18 months ago, had a tree November 2023 Technique: Multiple axial and sagittal images of the brain to been obtained. Siemens high-resolution 1.52 [place] short bore scanner utilized. Sagittal sections, T1 weighted images, TR 500, TE 14, are performed. Axial sections proton-density and T2-weighted images have been obtained. Inversion recovery axial images, TR 9260, TE 111, TR 2500. Diffusion weighted images, axial sections, TR 4800, TE 128, B value 1000. Axial sections, ADC map, TR 4800, TE 128. Axial and coronal images were also obtained post 17 cc gadolinium administered intravenously. Findings:: Enlargement of the sella turcica is not present. The optic chiasm and infundibular stalk are not remarkable. There is no localized enlargement of the medulla or angel. Fourth ventricle and cerebellar tonsils appear normal in position. No subacute area of hemorrhage density is seen. Fourth ventricle is midline. Mass in the cerebellopontine angle region is not evident. 7th and 8th nerve complexes exhibit symmetry Globes are symmetrical Orbital musculature including medial lateral rectus muscles do not exhibit abnormality Increased white matter signal is not seen Effacement of the cortical sulcal markings is not identified. Mass effect upon the ventricular system is not identified. Diffusion-weighted images demonstrate no focus of restricted diffusion Contrast images demonstrate no abnormal enhancing cerebellar or cerebral lesions Impression: Negative for acute hemorrhage mass effect or midline shift No acute infarct No MR findings diagnostic for demyelinating disease
== END | disposition home or self-care (01) ==
PROVIDERS: PCP Physician Assistant Medical; Referring Provider Physician Assistant Medical; Visit Provider Physician Assistant Medical
DX: R55 Syncope and collapse (principal); Z32.00 Encounter for pregnancy test, result unknown
CPT/HCPCS: 70553; 81025; A9579

== ENCOUNTER 2024-07-30 10:37 | Emergency (ER) | payer MEDICAID, SELFPAY ==
[2024-07-30 10:51] VITALS: BP 115/79; PULSE 73; RESP 16; TEMP 37; O2SAT 98; BMI 32.9
--- NOTE | 2024-07-30 11:03 | XR_ITS ---
Examination: CT brain head without contrast. 2-D sagittal coronal reconstructions Date and time of exam:July 30, 2024 1237 hours INDICATIONS: Syncopal episode today CTDI: vol (mGy):44.4 DLP: (mGycm):810 Technique: Multiple CT axial sections of the brain have been obtained, 5 mm slice thickness. Contrast has not been administered. 2-D sagittal, coronal reconstructions have been obtained Low dose protocols were performed. One or more of the following dose reduction techniques were used; automated exposure control, adjustment of the mA and/or KV according to patient size, use of iterative reconstruction technique. Findings: No significant ventricular enlargement. Intra-axial or extra-axial hemorrhage density is not seen. No mass effect or midline shift Basal cisterns are not remarkable. Fourth ventricle is midline. Cranial vault intact. Impression: Negative for acute hemorrhage, mass effect or midline shift
--- NOTE | 2024-07-30 13:12 | PD.EDADULT ---
ED General RME/HPI General Chief complaint: General Adult/Misc Complain Stated complaint: facial numbness Time Seen by Provider: 07/30/24 10:56 Arrival date/time: 07/30/24 10:37 18-year-old female presents to the Emergency Department today for complaints of facial paresthesia patient reports intermittent symptoms like this ongoing for the last couple of years patient has had outpatient MRI as well as EEG patient is followed up by neurology Limitations: no limitations Related Data Home Medications ?Medication ?Instructions ?Recorded ?Confirmed diphenhydramine HCl 50 mg capsule 50 mg PO HS PRN Insomnia 04/03/22 04/03/22 (Banophen) fluoxetine 20 mg capsule 20 mg PO DAILY 04/03/22 04/03/22 Previous Rx's ?Medication ?Instructions ?Recorded ibuprofen 800 mg tablet 800 mg PO TID PRN pain #30 tabs 01/29/23 ibuprofen 800 mg tablet 800 mg PO TID PRN pain #30 tabs 01/30/23 ondansetron 4 mg disintegrating 4 mg PO Q8H PRN nausea and 01/30/23 tablet vomiting #10 tabs ibuprofen 800 mg tablet 800 mg PO TID PRN pain #30 tabs 06/25/23 ibuprofen 600 mg tablet 600 mg PO Q8H PRN fever or pain 10/06/23 #20 tabs ibuprofen 600 mg tablet 600 mg PO Q8H PRN pain #20 tabs 03/18/24 naproxen 500 mg tablet (Naprosyn) 500 mg PO BID PRN pain #30 tabs 05/23/24 Allergies Allergy/AdvReac Type Severity Reaction Status Date / Time orange Allergy Severe RASH, Verified 07/30/24 10:42 SWELLING Penicillins Allergy Intermediate SOB Verified 07/30/24 10:42 Review of Systems Review of Systems Systems Reviewed: All systems reviewed, normal except as documented Constitutional Constitutional: Reports system reviewed and no additional complaints, except as documented, Denies fever(s) and Reports headache(s) Eyes Eyes: Reports system reviewed and no additional complaints, except as documented and Denies blurry vision ENT Ears, Nose, Mouth, and Throat: Reports system reviewed and no additional complaints, except as documented, Reports headache(s), Denies nasal congestion and Denies nasal discharge Cardiovascular Cardiovascular: Reports system reviewed and no additional complaints, except as documented, Denies chest pain and Denies dyspnea Respiratory Respiratory: Reports system reviewed and no additional complaints, except as documented, Denies chest congestion, Denies cough and Denies dyspnea Gastrointestinal Gastrointestinal: Reports system reviewed and no additional complaints, except as documented and Denies abdominal pain Integumentary/Breasts Skin/Breast: Reports system reviewed and no additional complaints, except as documented and Denies rash Neurologic Neurologic: Reports system reviewed and no additional complaints, except as documented, Reports as per HPI and Reports headache(s) Past Medical History Past Medical History CARDIAC: Negative Congestive Heart Failure RESPIRATORY: Negative Chronic Obstructive Pulmonary Disease (COPD) GENITOURINARY: Negative Renal Disease ENDOCRINE: Negative Diabetes Mellitus Type 1 or Diabetes Mellitus Type 2 PSYCHO/SOCIAL: Positive Depression and Anxiety Social History SMOKING STATUS: Light (< 1 pack/day) SUBSTANCE USE: marijuana ED Exam General Limitations: Present no limitations General appearance: Present alert and in no apparent distress Head Head exam: Present atraumatic, normocephalic and normal inspection Eye Eye exam: Present normal appearance, PERRL and EOMI ENT ENT exam: Present normal exam, normal oropharynx and mucous membranes moist Neck Neck exam: Present normal inspection, full ROM and trachea midline Chest Chest inspection: Present normal inspection and symmetric chest wall rise Respiratory Respiratory exam: Present normal lung sounds bilaterally Cardiovascular Cardiovascular exam: Present regular rate, normal rhythm and normal heart sounds Abdominal Exam Abdominal exam: Present soft and normal bowel sounds Extremities Exam Extremities exam: Present normal inspection and full ROM Back Exam Back exam: Present normal inspection and full ROM Neurological Exam Neurological exam: Present alert, oriented X3, CN II-XII intact, normal gait and reflexes normal; Absent motor sensory deficit Psychiatric Psychiatric exam: Present normal affect and normal mood Skin Skin exam: Present warm, dry, intact and normal color; Absent rash Course Quality Measures none Orders Category Date Time Status CT head/brain wo con Stat Exams 07/30/24 11:03 Completed Vital Signs Vital signs: Vital Signs Temperature 98.6 F 07/30/24 10:51 Pulse Rate 73 07/30/24 10:51 Respiratory Rate 16 07/30/24 10:51 Blood Pressure 115/79 07/30/24 10:51 Pulse Oximetry (%) 98 07/30/24 10:51 Oxygen Delivery Method Room Air 07/30/24 10:51 O2 saturation 98% room air within normal limits Discharge Plan Plan Patient Disposition: HOME (Self Care) Discharge Disposition comment: Stable Prescriptions/Referrals Prescriptions/Med Rec: No Action diphenhydramine HCl [Banophen] 50 mg capsule 50 mg PO HS PRN (Reason: Insomnia) Patient Comments: TAKE 1 CAPSULE BY MOUTH ONCE DAILY AT BEDTIME NEEDED fluoxetine 20 mg capsule 20 mg PO DAILY Patient Comments: TAKE 1 CAPSULE BY MOUTH ONCE DAILY IN THE MORNING ibuprofen 800 mg tablet 800 mg PO TID PRN (Reason: pain) Qty: 30 0RF ondansetron 4 mg tablet,disintegrating 4 mg PO Q8H PRN (Reason: nausea and vomiting) Qty: 10 0RF ibuprofen 800 mg tablet 800 mg PO TID PRN (Reason: pain) Qty: 30 0RF ibuprofen 600 mg tablet 600 mg PO Q8H PRN (Reason: fever or pain) Qty: 20 0RF ibuprofen 800 mg tablet 800 mg PO TID PRN (Reason: pain) Qty: 30 0RF ibuprofen 600 mg tablet 600 mg PO Q8H PRN (Reason: pain) Qty: 20 0RF naproxen [Naprosyn] 500 mg tablet 500 mg PO BID PRN (Reason: pain) Qty: 30 0RF Referrals: Pati Lance PA-C [Primary Care Provider] - In 1 week Problem List Clinical Impression: Headache Patient/Caregiver Discharge Instructions Education Materials: Self-Care for Headaches Additional Instructions: Please follow up with your primary care doctor in the next 24-48hrs for any worsening symptoms return here immediately Print Language: Spanish Stand Alone Forms: Kylie Award Info., Work/School Release, Patient Portal Info Letter PA/GERALDINE Supervising Physician PA/GERALDINE Supervising Physician: Dr. espinoza [facility] Narrative MDM hospital course: 18-year-old female presents to the Emergency Department today for complaints of facial paresthesia patient reports intermittent symptoms like this ongoing for the last couple of years patient has had outpatient MRI as well as EEG patient is followed up by neurology On exam this is a very well appearing patient patient does not appear ill or toxic in no acute distress patient walks with steady gait and has no abnormal neurological findings Head CT obtained at this time no acute emergent findings noted Patient instructed to follow-up with neurologist and for worsening symptoms return immediately Clinical Information Provided by none Medical Records Reviewed [facility] Meds/Rx Considered, not Ordered None Labs/Rad/Tests considered, not Ordered None Chronic Illness/Social Conditions which may negatively complicate care or outcome(s)-explain: None or not applicable EKG EKG not done Lab Interpretation Labs: none Imaging Imaging interpretation: interpreted by me Provider imaging interpretation(s): Radiology obtain Radiology reports / interpretation(s): Reviewed by me Medication Administration(s) none Dispositon Disposition: Discharge Home
== END 2024-07-30 14:32 | disposition home or self-care (01) ==
PROVIDERS: Emergency Provider Emergency Medicine; PCP Physician Assistant Medical
DX: R51.9 Headache, unspecified (principal); R20.2 Paresthesia of skin
CPT/HCPCS: 70450; 99284

== ENCOUNTER 2024-09-30 17:16 | Emergency (ER) | payer MEDICAID, SELFPAY ==
[2024-09-30 17:18] VITALS: BMI 32.9
[2024-09-30 18:02] VITALS: BP 142/80; PULSE 99; RESP 18; TEMP 37.1; O2SAT 100
--- NOTE | 2024-09-30 18:34 | XR_ITS ---
Examination: CT abdomen and pelvis without contrast. Coronal 3-D reconstructions. Sagittal 2-D reconstructions. Date and time of exam:September 30, 2024, 2024, 2103 hours INDICATIONS: Right flank pain one week CTDI: vol (mGy): 10.5 DLP: (mGycm): 605 Technique: Axial images of the abdomen have been obtained, 3 mm slice thickness Intravenous contrast material has not been administered. Low dose protocols were performed. One or more of the following dose reduction techniques were used; automated exposure control, adjustment of the mA and/or KV according to patient size, use of iterative reconstruction technique. Findings: No focal liver or splenic lesions No gallstones No pancreatic or adrenal mass. No renal or ureteral calculi, no hydronephrosis Aorta normal size Normal appendix No bowel obstruction Left pelvic 4 cm cyst Anteverted uterus Urinary bladder intact Osseous structures are intact IMPRESSION: No renal or ureteral calculi, no hydronephrosis Normal appendix No bowel structure diverticulitis 4 cm left pelvic cyst, consider pelvic sonography follow-up
--- NOTE | 2024-09-30 18:43 | PD.EDBACK ---
ED Back Injury Pain RME/HPI General Chief Complaint: Back Pain/Injury Stated Complaint: R) FLANK PAIN RADIATING TO ABD X 1 WK Time Seen by Provider: 09/30/24 18:33 Arrival date/time: 09/30/24 17:16 19F with history of anxiety and baseline elevated WBCs (pending outpatient hematology), presents to ED with 1 week of worsening R flank that radiates forward. Patient states pain is worse whenever she urinates, but denies gross dysuria. Symptoms started after patient has some N/V, non-bloody diarrhea, and patient just finished her cycle. Patient went to PCP, who gave her some Zofran and told her to stay hydrated. Patient denies fall/trauma, paresthesia, and bowel/bladder incontinence. Limitations: no limitations Related Data Home Medications ?Medication ?Instructions ?Recorded ?Confirmed diphenhydramine HCl 50 mg capsule 50 mg PO HS PRN Insomnia 04/03/22 04/03/22 (Banophen) fluoxetine 20 mg capsule 20 mg PO DAILY 04/03/22 04/03/22 Previous Rx's ?Medication ?Instructions ?Recorded ibuprofen 800 mg tablet 800 mg PO TID PRN pain #30 tabs 01/29/23 ibuprofen 800 mg tablet 800 mg PO TID PRN pain #30 tabs 01/30/23 ondansetron 4 mg disintegrating 4 mg PO Q8H PRN nausea and 01/30/23 tablet vomiting #10 tabs ibuprofen 800 mg tablet 800 mg PO TID PRN pain #30 tabs 06/25/23 ibuprofen 600 mg tablet 600 mg PO Q8H PRN fever or pain 10/06/23 #20 tabs ibuprofen 600 mg tablet 600 mg PO Q8H PRN pain #20 tabs 03/18/24 naproxen 500 mg tablet (Naprosyn) 500 mg PO BID PRN pain #30 tabs 05/23/24 Allergies Allergy/AdvReac Type Severity Reaction Status Date / Time orange Allergy Severe RASH, Verified 09/30/24 17:21 SWELLING Penicillins Allergy Intermediate SOB Verified 09/30/24 17:21 Review of Systems Review of Systems Systems Reviewed: All systems reviewed, normal except as documented Constitutional Constitutional: Reports system reviewed and no additional complaints, except as documented, Denies fever(s) and Denies headache(s) ENT Ears, Nose, Mouth, and Throat: Denies disequilibrium and Denies headache(s) Cardiovascular Cardiovascular: Reports system reviewed and no additional complaints, except as documented, Denies chest pain and Denies dyspnea Respiratory Respiratory: Reports system reviewed and no additional complaints, except as documented, Denies cough and Denies dyspnea Gastrointestinal Gastrointestinal: Reports system reviewed and no additional complaints, except as documented, Denies abdominal pain, Denies nausea and Denies vomiting Musculoskeletal Musculoskeletal: Reports as per HPI and Reports back pain Neurologic Neurologic: Reports system reviewed and no additional complaints, except as documented, Denies confusion, Denies disequilibrium and Denies headache(s) Psychiatric Psychiatric: Denies confusion Past Medical History Past Medical History CARDIAC: Negative Congestive Heart Failure RESPIRATORY: Negative Chronic Obstructive Pulmonary Disease (COPD) GENITOURINARY: Negative Renal Disease ENDOCRINE: Negative Diabetes Mellitus Type 1 or Diabetes Mellitus Type 2 PSYCHO/SOCIAL: Positive Depression and Anxiety Social History SMOKING STATUS: Current every day smoker SUBSTANCE USE: marijuana ED Exam General Limitations: Present no limitations General appearance: Present alert and in no apparent distress Head Head exam: Present atraumatic Eye Eye exam: Present normal appearance, PERRL and EOMI ENT ENT exam: Present normal exam, normal oropharynx and mucous membranes moist Neck Neck exam: Present normal inspection, full ROM and trachea midline Chest Chest inspection: Present normal inspection and symmetric chest wall rise Respiratory Respiratory exam: Present normal lung sounds bilaterally Cardiovascular Cardiovascular exam: Present regular rate, normal rhythm and normal heart sounds Abdominal Exam Abdominal exam: Present soft and normal bowel sounds Extremities Exam Extremities exam: Present normal inspection and full ROM Back Exam Back exam: Present normal inspection and full ROM Neurological Exam Neurological exam: Present alert, oriented X3 and CN II-XII intact Psychiatric Psychiatric exam: Present normal affect and normal mood Skin Skin exam: Present warm, dry, intact and normal color Course Quality Measures none Orders Category Date Time Status CT abdomen pelvis wo con Stat Exams 09/30/24 18:34 Completed US transvaginal Stat Exams 09/30/24 21:40 Taken CBC Stat Lab 09/30/24 18:40 Completed CMP [Comprehensive Metabolic Panel] Stat Lab 09/30/24 18:40 Completed HCG Qualitative,Urine Stat Lab 09/30/24 19:04 Completed Lipase Stat Lab 09/30/24 18:40 Completed UA [Urinalysis] Stat Lab 09/30/24 19:04 Completed Urine Culture Stat Lab 09/30/24 19:04 Received Vital Signs Vital signs: Vital Signs Temperature 98.8 F 08/05/25 18:02 Pulse Rate 99 09/30/24 18:02 Respiratory Rate 18 09/30/24 18:02 Blood Pressure 142/80 H 09/30/24 18:02 Pulse Oximetry (%) 100 09/30/24 18:02 Oxygen Delivery Method Room Air 09/30/24 18:02 O2 at 100% on RA and WNLs Back Pain / Injury MDM Narrative MDM Narrative:: 19F with history of anxiety and baseline elevated WBCs (pending outpatient hematology), presents to ED with 1 week of worsening R flank that radiates forward. Patient states pain is worse whenever she urinates, but denies gross dysuria. Symptoms started after patient has some N/V, non-bloody diarrhea, and patient just finished her cycle. Patient went to PCP, who gave her some Zofran and told her to stay hydrated. Patient denies fall/trauma, paresthesia, and bowel/bladder incontinence. Physical exam reveals no gross CVA tenderness. Patient is afebrile, calm, and alert. CT unremarkable. US reveals ovarian cyst. Mild leukocytosis (again likely baseline). CMP unremarkable. HCG neg. Counsle given. Patient data External records reviewed:: [facility] previous records Clinical information provided by:: patient Social determinants that could affect healthcare access:: mental health Patient has the following chronic illnesses:: anxiet How is presenting disease/condition affected by chronic disease/condition?: exacerbated by Evaluation data The following diagnostics were reviewed and interpreted by me:: lab results and radiology exam(s) Lab and/or radiology exams considered but not ordered:: ordered Interpretation Summary: above Medications / Prescriptions Medications or Prescriptions considered but not ordered:: not ordered Medication administrations:: n/a Consultations Consultation(s) initiated? (list below): No Diagnosis Differential diagnosis back pain/injury: lumbar radiculopathy, sciatica, strain of lumbar region, renal colic, pyelonephritis, thoracic back pain, AAA, discitis and other (kidney stone) Most likely diagnosis given after review of the tests above:: ovarian cyst Admission Indicated Admission indicated?: not indicated Admission Request Was there a request for admission?: No Disposition Plan Disposition Plan: Discharge Discharge Attestation Discharge Attestation: The patient and all family members were given an opportunity to ask questions and understood the discharge instructions. Discharge instructions specifically effects, indications for sooner follow up or return to the emergency department, and the expected course of current diagnosis. Patient condition: Stable Discharge Plan Plan Patient Disposition: HOME (Self Care) Discharge Disposition comment: Stable Prescriptions/Referrals Prescriptions/Med Rec: No Action diphenhydramine HCl [Banophen] 50 mg capsule 50 mg PO HS PRN (Reason: Insomnia) Patient Comments: TAKE 1 CAPSULE BY MOUTH ONCE DAILY AT BEDTIME NEEDED fluoxetine 20 mg capsule 20 mg PO DAILY Patient Comments: TAKE 1 CAPSULE BY MOUTH ONCE DAILY IN THE MORNING ibuprofen 800 mg tablet 800 mg PO TID PRN (Reason: pain) Qty: 30 0RF ondansetron 4 mg tablet,disintegrating 4 mg PO Q8H PRN (Reason: nausea and vomiting) Qty: 10 0RF ibuprofen 800 mg tablet 800 mg PO TID PRN (Reason: pain) Qty: 30 0RF ibuprofen 600 mg tablet 600 mg PO Q8H PRN (Reason: fever or pain) Qty: 20 0RF ibuprofen 800 mg tablet 800 mg PO TID PRN (Reason: pain) Qty: 30 0RF ibuprofen 600 mg tablet 600 mg PO Q8H PRN (Reason: pain) Qty: 20 0RF naproxen [Naprosyn] 500 mg tablet 500 mg PO BID PRN (Reason: pain) Qty: 30 0RF Referrals: She Lance [Primary Care Provider] - In 1 week Problem List Clinical Impression: Ovarian cyst Patient/Caregiver Discharge Instructions Education Materials: ED Ovarian Cyst Additional Instructions: Please follow-up with PCP/OBGYN within 24-48 hours and return immediately if symptoms worsen. Print Language: Guinean Stand Alone Forms: Patient Portal Info Letter DORA/GERALDINE Supervising Physician DORA/GERALDINE Supervising Physician: Dr. Proctor
[2024-09-30 19:06] LABS: Basophils # (Auto) 0.1 Thou/mm3 (0.0-0.2); Basophils % (Auto) 1 % (0-2.5); Eosinophils # (Auto) 0.3 Thou/mm3 (0.0-0.5); Eosinophils % (Auto) 2 % (0-10); Hematocrit 36.1 % (36.0-46.0); Hemoglobin 12.0 g/dL (12.0-16.0); Immature Granulocytes Auto 0.05 Thou/mm3 (0.00-0.00); Lymphocytes # (Auto) 2.4 Thou/mm3 (1.0-4.8); Lymphocytes % (Auto) 18 % (10-50); Mean Corpuscular HGB Conc 33.2 g/dl (31.0-37.0); Mean Corpuscular Hemoglobin 29.6 pg (25.0-35.0); Mean Corpuscular Volume 89 fL (80-100); Monocytes # (Auto) 0.7 Thou/mm3 (0.0-0.8); Monocytes % (Auto) 5 % (0-12); Neutrophils # (Auto) 10.0 Thou/mm3 (1.8-7.7); Neutrophils % (Auto) 75 % (37-80); Nucleated Red Blood Cell # 0.00 Thou/mm3 (0.00-0.00); Nucleated Red Blood Cell % 0 /100 WBC (0); Platelet Count 396 Thou/mm3 (140-440); RDW Standard Deviation 44.1 fL (36.4-46.3); Red Blood Count 4.05 Miln/mm3 (4.00-5.20); White Blood Count 13.5 Thou/mm3 (4.5-11.0)
[2024-09-30 19:16] LABS: Collection Type, Urine Clean Catch
[2024-09-30 19:23] LABS: Bacteria,Urine Rare; Bilirubin,Urine Negative (Negative); Blood,Urine Negative (Negative); Clarity,Urine Clear (Clear/Hazy); Color,Urine Lt-Yellow (Lt Yel-Yel); Glucose, Urine Negative (Negative); Ketones,Urine Negative (Negative); Leukocyte Esterase,Urine Negative (Negative); Nitrite,Urine Negative (Negative); PH,Urine 6.5 (5.0-7.0); Protein,Urine Negative (Neg - Trace); RBC,Urine 1 /hpf (0-3); Specific Gravity,Urine 1.011 (1.001-1.035); Squamous Epithelial Cell,Urine 3 /hpf (0-5); Urobilinogen,Urine Negative mg/dL (0.0-1.0); WBC,Urine 1 /hpf (0-5)
[2024-09-30 19:25] LABS: HCG Qualitative,Urine Negative
[2024-09-30 19:51] LABS: Alanine Aminotransferase 10 U/L (10-49); Albumin, Serum 4.7 gm/dL (3.5-5.0); Albumin/Globulin Ratio 1.9 (1.2-2.2); Alkaline Phosphatase 76 U/L (46-116); Anion Gap 10 (7-16); Aspartate Amino Transferase 13 U/L (0-34); BUN/Creatinine Ratio 8 Ratio (12-20); Bilirubin,Total 0.2 mg/dL (0.3-1.2); Blood Urea Nitrogen 6 mg/dL (9-23); Calcium 10.0 mg/dL (8.3-10.6); Calcium (Corrected) 10.0 mg/dL (8.5-10.1); Carbon Dioxide 28.0 mMol/L (20.0-31.0); Chloride 105 mMol/L (98-107); Creatinine (Component) 0.8 mg/dL (0.6-1.3); Estimated Creatinine Clearance 119.8 mL/min (>60); Globulin 2.5 gm/dL (2.3-3.5); Glucose 102 mg/dL (74-106); Osmolality,Calculated 282 (275-295); Potassium 4.1 mMol/L (3.4-5.1); Sodium 143 mMol/L (136-145); Total Protein 7.2 gm/dL (5.7-8.2); eGFR > 60 See Note
--- NOTE | 2024-09-30 21:40 | XR_ITS ---
Examination: Transvaginal ultrasound of the pelvis, complete Technique: Transvaginal sonographic images pelvis performed using morocho scale imaging Exam date and time: October 04, 2024 2159 hours INDICATIONS: Right-sided pelvic pain beginning one week ago FINDINGS: Uterus 6.5 cm endometrial stripe 0.9 cm No uterine mass or intrauterine gestation Right ovary 3.3 cm arterial flow 17 mm follicular cyst Left ovary 3.3 cm arterial flow simple left ovarian cyst 4.8 x 2.4 x 3.9 cm IMPRESSION: Simple left ovarian cyst 4.8 x 2.4 x 3.9 cm.
[2024-09-30 22:26] LABS: Lipase 32 U/L (12-53)
--- NOTE | 2024-10-01 00:21 | PRELIM_ITS ---
Pelvic ultrasound (transvaginal). September 30, 2024 2159 hours Clinical history: Left-sided abdominal pain; cyst on CT Technique: Real-time, grayscale, transvaginal pelvic ultrasound was performed using Duplex scanning including arterial inflow, venous outflow, color and spectral Doppler. Comparison: No prior study is available for comparison. Findings: The uterus is normal in size, measures 6.5 x 2.8 x 3.6 cm and is anteverted. The endometrium measures 9 mm and appears unremarkable The right ovary measures 3.3 x 3 x 3.1 cm and demonstrates a follicular cyst, measuring 1.7 x 1.5 x 1.6 cm. The left ovary measures 3.3 x 2.5 x 2.7 cm and demonstrates follicles. Both ovaries demonstrate normal color flow and spectral waveforms on Doppler evaluation. There is an anechoic cystic lesion in the left adnexa, adjacent to the left ovary, measuring 4.8 x 2.4 x 3.9 cm, which may represent an exophytic versus left paraovarian cyst. Small amount of free fluid is seen in the pelvis. Impression: No sonographic evidence of ovarian torsion is demonstrated on the submitted images. Anechoic cystic lesion in the left adnexa, adjacent to the left ovary, which may represent left paraovarian cyst versus an exophytic. Recommend follow up. Report Electronically Signed By: Mykel Chatterjee 10/01/2024 12:20:30 AM [EST]
[2024-10-01 01:04] VITALS: BP 135/76; PULSE 86; RESP 18; TEMP 37; O2SAT 99
== END 2024-10-01 01:07 | disposition home or self-care (01) ==
PROVIDERS: Physician Assistant; Emergency Provider Emergency Medicine
DX: N83.292 Other ovarian cyst, left side (principal); D72.829 Elevated white blood cell count, unspecified
CPT/HCPCS: 36415; 74176; 76830; 80053; 81001; 81025; 83690; 85025; 87086; 99283

== ENCOUNTER 2024-10-18 08:41 | Emergency (ER) | payer MEDICAID, SELFPAY ==
[2024-10-18 09:12] VITALS: BP 131/82; PULSE 96; RESP 18; TEMP 37.8; O2SAT 99; BMI 32.1
--- NOTE | 2024-10-18 09:28 | PD.EDRME ---
Rapid Medical Screening Exam RME Arrival date/time: 10/18/24 08:41 Chief Complaint: Vaginal Bleeding Time Seen by Provider: 10/18/24 09:26 Vital signs: Vital Signs Temperature 100.1 F 10/18/24 09:12 Pulse Rate 96 10/18/24 09:12 Respiratory Rate 18 10/18/24 09:12 Blood Pressure 131/82 H 10/18/24 09:12 Pulse Oximetry (%) 99 10/18/24 09:12 Oxygen Delivery Method Room Air 10/18/24 09:12 Vital signs reviewed by provider: Yes RME Narrative: Patient is a 19-year-old female with no significant past medical history is in the emergency department concerns for 3 days of diarrhea, pelvic cramps, heavy vaginal bleeding. Patient states that her period was late a few days, and that her period started and has been heavy. She is soaked through 10 pads in the last 2 days. 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 Denies fevers chills does endorse nausea. No chest pain or dysuria no melena no bloody stools. No recent travel no sick contacts. No alcohol, patient to smoke marijuana. Patient has not been that she knows of. Patient states that she has had an elevated white blood cell count that has been identified recently and her primary care doctor is working with her to try to figure out why. Patient was told that she was allergic to penicillin however she has never taken penicillin, she was told that she was allergic because her mom is allergic
--- NOTE | 2024-10-18 09:29 | XR_ITS ---
Examination: Pelvic ultrasound, transabdominal, complete Technique: Transabdominal ultrasound of the pelvis performed using grayscale imaging Date and time of exam: October 18, 2024 1108 hrs. Indications: Irregular heavy vaginal bleeding beginning 3 days ago. Findings: Uterus 6.2 cm endometrial stripe 0.5 cm No uterine mass or intrauterine gestation Right ovary 2.8 cm arterial flow Left ovary 2.8 cm arterial flow pedunculated cyst 3.8 x 3.5 x 3.9 cm Impression: Pedunculated but simple appearing left ovarian cyst 3.8 x 3.5 x 3.9 cm, recommend 6 month follow-up pelvic sonography
[2024-10-18 10:34] LABS: Collection Type, Urine Clean Catch
[2024-10-18 10:44] LABS: Basophils # (Auto) 0.0 Thou/mm3 (0.0-0.2); Basophils % (Auto) 0 % (0-2.5); Eosinophils # (Auto) 0.0 Thou/mm3 (0.0-0.5); Eosinophils % (Auto) 0 % (0-10); Hematocrit 36.8 % (36.0-46.0); Hemoglobin 12.2 g/dL (12.0-16.0); Immature Granulocytes Auto 0.07 Thou/mm3 (0.00-0.00); Lymphocytes # (Auto) 0.9 Thou/mm3 (1.0-4.8); Lymphocytes % (Auto) 7 % (10-50); Mean Corpuscular HGB Conc 33.2 g/dl (31.0-37.0); Mean Corpuscular Hemoglobin 29.3 pg (25.0-35.0); Mean Corpuscular Volume 88 fL (80-100); Monocytes # (Auto) 0.7 Thou/mm3 (0.0-0.8); Monocytes % (Auto) 6 % (0-12); Neutrophils # (Auto) 11.1 Thou/mm3 (1.8-7.7); Neutrophils % (Auto) 87 % (37-80); Nucleated Red Blood Cell # 0.00 Thou/mm3 (0.00-0.00); Nucleated Red Blood Cell % 0 /100 WBC (0); Platelet Count 333 Thou/mm3 (140-440); RDW Standard Deviation 44.4 fL (36.4-46.3); Red Blood Count 4.17 Miln/mm3 (4.00-5.20); White Blood Count 12.8 Thou/mm3 (4.5-11.0)
[2024-10-18 11:01] LABS: HCG,Qualitative Serum Negative
[2024-10-18 11:09] LABS: Alanine Aminotransferase 10 U/L (10-49); Albumin, Serum 4.7 gm/dL (3.5-5.0); Albumin/Globulin Ratio 1.6 (1.2-2.2); Alkaline Phosphatase 73 U/L (46-116); Anion Gap 10 (7-16); Aspartate Amino Transferase 15 U/L (0-34); BUN/Creatinine Ratio 6 Ratio (12-20); Bilirubin,Total 0.3 mg/dL (0.3-1.2); Blood Urea Nitrogen < 5 mg/dL (9-23); Calcium 9.8 mg/dL (8.3-10.6); Calcium (Corrected) 9.8 mg/dL (8.5-10.1); Carbon Dioxide 25.2 mMol/L (20.0-31.0); Chloride 105 mMol/L (98-107); Creatinine (Component) 0.9 mg/dL (0.6-1.3); Estimated Creatinine Clearance 105.2 mL/min (>60); Globulin 2.9 gm/dL (2.3-3.5); Glucose 105 mg/dL (74-106); Lipase 27 U/L (12-53); Osmolality,Calculated 276 (275-295); Potassium 4.1 mMol/L (3.4-5.1); Sodium 140 mMol/L (136-145); Total Protein 7.6 gm/dL (5.7-8.2); eGFR > 60 See Note
[2024-10-18 11:11] LABS: Bilirubin,Urine Negative (Negative); Blood,Urine 3+ (Negative); Culture Indicated,Urine Contaminated; Glucose, Urine Negative (Negative); Ketones,Urine Trace (Negative); Leukocyte Esterase,Urine Positive (Negative); Nitrite,Urine Negative (Negative); PH,Urine 6.0 (5.0-7.0); Protein,Urine 2+ (Neg - Trace); RBC,Urine 5597 /hpf (0-3); Specific Gravity,Urine 1.029 (1.001-1.035); Squamous Epithelial Cell,Urine 16 /hpf (0-5); Urobilinogen,Urine Negative mg/dL (0.0-1.0); WBC,Urine 46 /hpf (0-5)
[2024-10-18 11:12] LABS: Clarity,Urine Bloody (Clear/Hazy); Color,Urine Drk-Red (Lt Yel-Yel)
[2024-10-18] MEDS: ACETAMINOPHEN 325 MG TABLET 650 MG PO (12:11)
[2024-10-18 13:21] VITALS: BP 110/59; PULSE 67; RESP 17; TEMP 36.9; O2SAT 98
--- NOTE | 2024-10-18 13:26 | PD.EDVAGBL ---
ED OB Contraction Preg RMI/HPI General Chief complaint: Vaginal Bleeding Stated complaint: vaginal bleeding, diarrhea, abd pain Time Seen by Provider: 10/18/24 09:26 Arrival date/time: 10/18/24 08:41 Limitations: no limitations RME / HPI RME / HPI Narrative: Patient is a 19-year-old female with no significant past medical history is in the emergency department concerns for 3 days of diarrhea, pelvic cramps, heavy vaginal bleeding. Patient states that her period was late by 4 days, and that her period started and has been heavy. She is soaked through 10 pads in the last 2 days. Does not have a senior infrastructure architect. Denies fevers chills does endorse nausea. No chest pain or dysuria no melena no bloody stools. She has known cystic ovaries. No recent travel no sick contacts. No alcohol, patient to smoke marijuana. Patient has not been that she knows of. Patient states that she has had an elevated white blood cell count that has been identified recently and her primary care doctor is working with her to try to figure out why. Patient was told that she was allergic to penicillin however she has never taken penicillin, she was told that she was allergic because her mom is allergic Related Data Home Medications ?Medication ?Instructions ?Recorded ?Confirmed diphenhydramine HCl 50 mg capsule 50 mg PO HS PRN Insomnia 04/03/22 04/03/22 (Banophen) fluoxetine 20 mg capsule 20 mg PO DAILY 04/03/22 04/03/22 Previous Rx's ?Medication ?Instructions ?Recorded ibuprofen 800 mg tablet 800 mg PO TID PRN pain #30 tabs 01/29/23 ibuprofen 800 mg tablet 800 mg PO TID PRN pain #30 tabs 01/30/23 ondansetron 4 mg disintegrating 4 mg PO Q8H PRN nausea and 01/30/23 tablet vomiting #10 tabs ibuprofen 800 mg tablet 800 mg PO TID PRN pain #30 tabs 06/25/23 ibuprofen 600 mg tablet 600 mg PO Q8H PRN fever or pain 10/06/23 #20 tabs ibuprofen 600 mg tablet 600 mg PO Q8H PRN pain #20 tabs 03/18/24 naproxen 500 mg tablet (Naprosyn) 500 mg PO BID PRN pain #30 tabs 05/23/24 Allergies Allergy/AdvReac Type Severity Reaction Status Date / Time orange Allergy Severe RASH, Verified 10/18/24 08:41 SWELLING Penicillins Allergy Intermediate SOB Verified 10/18/24 08:41 Review of Systems Review of Systems Systems Reviewed: All systems reviewed, normal except as documented ED Exam General Limitations: Present no limitations General appearance: Present alert and in no apparent distress Head Head exam: Present atraumatic Eye Eye exam: Present normal appearance, PERRL and EOMI ENT ENT exam: Present normal exam, normal oropharynx and mucous membranes moist Neck Neck exam: Present normal inspection, full ROM and trachea midline Chest Chest inspection: Present normal inspection and symmetric chest wall rise Respiratory Respiratory exam: Present normal lung sounds bilaterally Cardiovascular Cardiovascular exam: Present regular rate, normal rhythm and normal heart sounds Abdominal Exam Abdominal exam: Present soft Extremities Exam Extremities exam: Present normal inspection and full ROM Back Exam Back exam: Present normal inspection and full ROM Neurological Exam Neurological exam: Present alert and oriented X3 Psychiatric Psychiatric exam: Present normal affect and normal mood Skin Skin exam: Present warm, dry, intact and normal color Course Quality Measures none Orders Category Date Time Status Bedside COVID-19 Antigen Test NOW Care 10/18/24 09:27 Active Bedside Influenza A&B Antigen Test NOW Care 10/18/24 09:27 Completed US pelvic complete Stat Exams 10/18/24 09:29 Completed CBC Stat Lab 10/18/24 10:02 Completed CMP [Comprehensive Metabolic Panel] Stat Lab 10/18/24 10:02 Completed HCG,Qualitative Serum Stat Lab 10/18/24 10:02 Completed Lipase Stat Lab 10/18/24 10:02 Completed UA, C/S IF [Urinalysis, C/S if Indicated] Stat Lab 10/18/24 10:05 Completed Acetaminophen Tab [Tylenol Tab] Med 10/18/24 09:27 Discontinued 650 mg PO X1 ONE Vital Signs Vital signs: Vital Signs Temperature 100.1 F 10/18/24 09:12 Pulse Rate 96 10/18/24 09:12 Respiratory Rate 18 10/18/24 09:12 Blood Pressure 131/82 H 10/18/24 09:12 Pulse Oximetry (%) 99 10/18/24 09:12 Oxygen Delivery Method Room Air 10/18/24 09:12 Vaginal Bleeding MDM Narrative MDM Narrative: Patient is a 19-year-old female with no significant past medical history is in the emergency department concerns for 3 days of diarrhea, pelvic cramps, heavy vaginal bleeding. Patient states that her period was late by 4 days, and that her period started and has been heavy. She is soaked through 10 pads in the last 2 days. Does not have a senior infrastructure architect. Denies fevers chills does endorse nausea. No chest pain or dysuria no melena no bloody stools. She has known cystic ovaries. No recent travel no sick contacts. No alcohol, patient to smoke marijuana. Patient has not been that she knows of. Patient states that she has had an elevated white blood cell count that has been identified recently and her primary care doctor is working with her to try to figure out why. Patient was told that she was allergic to penicillin however she has never taken penicillin, she was told that she was allergic because her mom is allergic On exam, patient is nontoxic-appearing no visible signs distress. Her workup essentially unremarkable with exception of hematuria that is consistent with her history. There are no acute findings on her ultrasound. There is noted, unknown, cyst on her ovaries. Your screening test for influenza A and B are both positive. We discussed this as a likely source of her acute symptoms. Patient will be discharged from the emergency room. She is asked to use Tylenol and ibuprofen as needed for comfort. Return here at anytime for any worsening or emergent changes. Patient data External records reviewed:: [facility] previous records Clinical information provided by:: patient Social determinants that could affect healthcare access:: none Patient has the following chronic illnesses:: Cystic ovaries depression How is presenting disease/condition affected by chronic disease/condition?: uneffected by Evaluation data The following diagnostics were reviewed and interpreted by me:: lab results and radiology exam(s) Lab and/or radiology exams considered but not ordered:: n/a Interpretation Summary: Positive screens for both influenza A and B Medications / Prescriptions Medications or Prescriptions considered but not ordered:: n/a Medication administrations:: Medication Administration History Discontinued Medications Acetaminophen (Acetaminophen 325 Mg Tablet) 650 mg PO X1 ONE Stop: 10/18/24 09:28 Last Admin: 10/18/24 12:11 Dose: 650 mg Documented By: ARF See above Consultations Consultation(s) initiated? (list below): No Diagnosis Vaginal Bleeding Differential Diagnosis: ectopic without intrauterine and vaginal bleeding Most likely diagnosis given after review of the tests above:: Influenza type A and B Admission Indicated Admission indicated?: not indicated Admission Request Was there a request for admission?: No Disposition Plan Disposition Plan: Discharge Discharge Attestation Discharge Attestation: The patient and all family members were given an opportunity to ask questions and understood the discharge instructions. Discharge instructions specifically effects, indications for sooner follow up or return to the emergency department, and the expected course of current diagnosis. Patient condition: Stable Discharge Plan Plan Patient Disposition: HOME (Self Care) Patient condition on transfer: Stable Prescriptions/Referrals Prescriptions/Med Rec: No Action diphenhydramine HCl [Banophen] 50 mg capsule 50 mg PO HS PRN (Reason: Insomnia) Patient Comments: TAKE 1 CAPSULE BY MOUTH ONCE DAILY AT BEDTIME NEEDED fluoxetine 20 mg capsule 20 mg PO DAILY Patient Comments: TAKE 1 CAPSULE BY MOUTH ONCE DAILY IN THE MORNING ibuprofen 800 mg tablet 800 mg PO TID PRN (Reason: pain) Qty: 30 0RF ondansetron 4 mg tablet,disintegrating 4 mg PO Q8H PRN (Reason: nausea and vomiting) Qty: 10 0RF ibuprofen 800 mg tablet 800 mg PO TID PRN (Reason: pain) Qty: 30 0RF ibuprofen 600 mg tablet 600 mg PO Q8H PRN (Reason: fever or pain) Qty: 20 0RF ibuprofen 800 mg tablet 800 mg PO TID PRN (Reason: pain) Qty: 30 0RF ibuprofen 600 mg tablet 600 mg PO Q8H PRN (Reason: pain) Qty: 20 0RF naproxen [Naprosyn] 500 mg tablet 500 mg PO BID PRN (Reason: pain) Qty: 30 0RF Referrals: No Primary/Family,Physician [Primary Care Provider] - In 1 week Problem List Clinical Impression: Influenza Patient/Caregiver Discharge Instructions Education Materials: ED Influenza (Adult) Additional Instructions: -Maintain oral hydration. -Use ibuprofen and tylenol for comfort. -Follow up with doctor as needed. -Return here as needed for any emergent changes. Print Language: Turkish Stand Alone Forms: Kylie Award Info., Patient Portal Info Letter
== END 2024-10-18 13:30 | disposition home or self-care (01) ==
PROVIDERS: Emergency Provider Emergency Medicine
DX: J11.1 Influenza due to unidentified influenza virus with other respiratory manifestations (principal); N83.202 Unspecified ovarian cyst, left side
CPT/HCPCS: 36415; 76856; 80053; 81001; 83690; 84703; 85025; 87400; 87811; 99283; A9270

== ENCOUNTER 2024-10-20 23:44 | Emergency (ER) | payer MEDICAID, SELFPAY ==
[2024-10-20 23:45] VITALS: BMI 33.3
[2024-10-21 00:25] VITALS: BP 134/75; PULSE 65; RESP 18; TEMP 37; O2SAT 99
--- NOTE | 2024-10-21 00:50 | XR_ITS ---
Examination: CT abdomen and pelvis without contrast. Coronal 3-D reconstructions. Sagittal 2-D reconstructions. Date and time of exam:October 01, 2024, 0239 hours, comparison September 30, 2024 INDICATIONS: Vomiting and abdominal pain beginning 2 days ago. CTDI: vol (mGy): 10.3. DLP: (mGycm): 580. Technique: Axial images of the abdomen have been obtained, 3 mm slice thickness Intravenous contrast material has not been administered. Low dose protocols were performed. One or more of the following dose reduction techniques were used; automated exposure control, adjustment of the mA and/or KV according to patient size, use of iterative reconstruction technique. Findings: No focal liver or splenic lesions. No gallstones. No pancreatic or adrenal mass. No renal or ureteral calculi, no hydronephrosis. Small lymph nodes in the right lower mesentery. No pericecal inflammatory change. There is mild wall thickening involving the colon. 4 cm posterior left ovarian cyst Small right ovarian follicles Osseous structures intact IMPRESSION: Mild nonspecific colitis pattern 4 cm posterior left ovarian cyst
[2024-10-21 01:49] LABS: Basophils # (Auto) 0.1 Thou/mm3 (0.0-0.2); Basophils % (Auto) 1 % (0-2.5); Eosinophils # (Auto) 0.1 Thou/mm3 (0.0-0.5); Eosinophils % (Auto) 1 % (0-10); Hematocrit 35.3 % (36.0-46.0); Hemoglobin 11.8 g/dL (12.0-16.0); Immature Granulocytes Auto 0.02 Thou/mm3 (0.00-0.00); Lymphocytes # (Auto) 2.4 Thou/mm3 (1.0-4.8); Lymphocytes % (Auto) 23 % (10-50); Mean Corpuscular HGB Conc 33.4 g/dl (31.0-37.0); Mean Corpuscular Hemoglobin 28.9 pg (25.0-35.0); Mean Corpuscular Volume 86 fL (80-100); Monocytes # (Auto) 1.1 Thou/mm3 (0.0-0.8); Monocytes % (Auto) 10 % (0-12); Neutrophils # (Auto) 6.9 Thou/mm3 (1.8-7.7); Neutrophils % (Auto) 65 % (37-80); Nucleated Red Blood Cell # 0.00 Thou/mm3 (0.00-0.00); Nucleated Red Blood Cell % 0 /100 WBC (0); Platelet Count 316 Thou/mm3 (140-440); RDW Standard Deviation 41.3 fL (36.4-46.3); Red Blood Count 4.09 Miln/mm3 (4.00-5.20); White Blood Count 10.6 Thou/mm3 (4.5-11.0)
[2024-10-21 02:13] LABS: Alanine Aminotransferase 11 U/L (10-49); Albumin, Serum 4.6 gm/dL (3.5-5.0); Albumin/Globulin Ratio 1.8 (1.2-2.2); Alkaline Phosphatase 65 U/L (46-116); Anion Gap 11 (7-16); Aspartate Amino Transferase 16 U/L (0-34); BUN/Creatinine Ratio 8 Ratio (12-20); Bilirubin,Total < 0.2 mg/dL (0.3-1.2); Blood Urea Nitrogen 7 mg/dL (9-23); Calcium 10.0 mg/dL (8.3-10.6); Calcium (Corrected) 10.0 mg/dL (8.5-10.1); Carbon Dioxide 26.8 mMol/L (20.0-31.0); Chloride 103 mMol/L (98-107); Creatinine (Component) 0.9 mg/dL (0.6-1.3); Estimated Creatinine Clearance 103.2 mL/min (>60); Globulin 2.5 gm/dL (2.3-3.5); Glucose 106 mg/dL (74-106); Lipase 36 U/L (12-53); Osmolality,Calculated 279 (275-295); Potassium 3.5 mMol/L (3.4-5.1); Sodium 141 mMol/L (136-145); Total Protein 7.1 gm/dL (5.7-8.2); eGFR > 60 See Note
[2024-10-21 02:17] LABS: Collection Type, Urine Clean Catch
[2024-10-21 02:26] LABS: HCG Qualitative,Urine Negative
[2024-10-21 02:29] LABS: Bacteria,Urine Rare; Bilirubin,Urine Negative (Negative); Blood,Urine 1+ (Negative); Clarity,Urine Turbid (Clear/Hazy); Color,Urine Lt-Yellow (Lt Yel-Yel); Glucose, Urine Negative (Negative); Ketones,Urine Negative (Negative); Leukocyte Esterase,Urine Negative (Negative); Nitrite,Urine Negative (Negative); PH,Urine 6.5 (5.0-7.0); Protein,Urine Negative (Neg - Trace); RBC,Urine 1 /hpf (0-3); Specific Gravity,Urine 1.011 (1.001-1.035); Squamous Epithelial Cell,Urine 13 /hpf (0-5); Urobilinogen,Urine Negative mg/dL (0.0-1.0); WBC,Urine 2 /hpf (0-5)
[2024-10-21] MEDS: SODIUM CHLORIDE 0.9% 1000 ML 1,000 ML 999 ML IV (04:05)
[2024-10-21] MEDS: FAMOTIDINE INJ 10 MG/ML VIAL 2 ML 20 MG IVP (04:06)
[2024-10-21] MEDS: ONDANSETRON INJ 2 MG/ML INJ 2 ML 4 MG IVP (04:06)
--- NOTE | 2024-10-21 04:27 | PRELIM_ITS ---
CT scan of the abdomen and pelvis without intravenous contrast (axial sections with sagittal and coronal reformats) October 21, 2024 0239 hours Clinical History: abd pain Comparison: No prior study is available for comparison. Findings: The lung bases are clear. The liver, gallbladder, pancreas, spleen, kidneys and adrenals are unremarkable son this noncontrast study. No evidence of bowel obstruction. There is mild thickening of the ascending colon with associated fat stranding and mucosal enhancement. The appendix is within normal limits (images [id number]). There are multiple subcentimeter mesenteric and retroperitoneal lymph nodes are noted in right abdomen. The urinary bladder is incompletely distended at the time of the examination and appears mildly thick walled. There is a right ovarian follicle, measuring 2.4 cm. There is a left ovarian cyst, measuring 3.5 cm. There is no free fluid or free air. The osseous structures are unremarkable. Impression: Findings consistent with colitis as described. Other findings as described above. Report Electronically Signed By: Mykel Chatterjee 10/21/2024 4:26:59 AM [EST]
--- NOTE | 2024-10-21 04:41 | EDNOTE_ITS ---
ED Abdominal Pain RME/HPI General Chief Complaint: Flu Like Symptoms Stated complaint: VOMITING X 2 DAYS. DX W INFLU A&B. Time seen by provider: 10/20/24 23:56 Arrival date/time: 10/20/24 23:44 This is a case of 19-year-old female with no medical history came in in the emergency room due to abdominal pain on and off for 5 days associated with nausea vomiting nonprojectile and diarrhea none watery nonbloody no discharge patient was seen here October 17, 2024 and was discharged with vaginal bleeding and influenza A and B patient vaginal bleeding was resolved but due to persistence of the abdominal pain nausea vomiting and diarrhea this patient decided to sought consult here in the emergency room Source: patient Limitations: no limitations Related Data Home Medications ?Medication ?Instructions ?Recorded ?Confirmed diphenhydramine HCl 50 mg capsule 50 mg PO HS PRN Inso mnia 04/03/22 04/03/22 (Banophen) fluoxetine 20 mg capsule 20 mg PO DAILY 04/03/2208/18 Previous Rx's ?Medication ?Instructions ?Recorded ibuprofen 800 mg tablet 800 mg PO TID PRN pain #30 t abs 01/29/23 ibuprofen 800 mg tablet 800 mg PO TID PRN pain #30 t abs 01/30/23 ondansetron 4 mg disintegrating 4 mg PO Q8H PRN nausea and 01/30/23 tablet vomiting #10 tabs ibuprofen 800 mg tablet 800 mg PO TID PRN pain #30 t abs 06/25/23 ibuprofen 600 mg tablet 600 mg PO Q8H PRN fever or p ain 10/06/23 #20 tabs ibuprofen 600 mg tablet 600 mg PO Q8H PRN pain #20 t abs 03/18/24 naproxen 500 mg tablet (Naprosyn) 500 mg PO BID PRN pa in #30 tabs 05/23/24 ciprofloxacin HCl 500 mg tablet 500 mg PO BID 5 days # 10 tabs 10/21/24 (Cipro) dicyclomine 20 mg tablet 20 mg PO TID PRN abdominal p ain 10/21/24 #20 tabs loperamide 2 mg capsule (Imodium 2 mg PO Q6H PRN loose stool #10 10/21/24 A-D) caps metronidazole 500 mg tablet 500 mg PO BID #20 tabs 08/ 26/25 ondansetron 4 mg disintegrating 4 mg PO Q8H PRN nausea and 10/21/24 tablet vomiting #20 tabs Allergies Allergy/AdvReac Type Severity Reaction Status Date / Time orange Allergy Severe RASH, Verified 10/18/24 08:41 SWELLING Penicillins Allergy Intermediate SOB Verified 10/18/24 08:41 Review of Systems Review of Systems Systems Reviewed: All systems reviewed, normal except as documented Constitutional Constitutional: Reports system reviewed and no additional complaints, except as documented, Reports as per HPI, Denies chills and Denies fever(s) ENT Ears, Nose, Mouth, and Throat: Reports system reviewed and no additional complaints, except as documented and Reports as per HPI Cardiovascular Cardiovascular: Reports system reviewed and no additional complaints, except as documented, Reports as per HPI, Denies chest pain and Denies dyspnea Respiratory Respiratory: Reports system reviewed and no additional complaints, except as documented, Reports as per HPI, Denies cough and Denies dyspnea Gastrointestinal Gastrointestinal: Reports system reviewed and no additional complaints, except as documented, Reports as per HPI, Reports abdominal pain, Reports diarrhea, Reports nausea and Reports vomiting Musculoskeletal Musculoskeletal: Reports system reviewed and no additional complaints, except as documented and Reports as per HPI Neurologic Neurologic: Reports system reviewed and no additional complaints, except as documented and Reports as per HPI Past Medical History Past Medical History CARDIAC: Negative Congestive Heart Failure RESPIRATORY: Negative Chronic Obstructive Pulmonary Disease (COPD) GENITOURINARY: Negative Renal Disease ENDOCRINE: Negative Diabetes Mellitus Type 1 or Diabetes Mellitus Type 2 PSYCHO/SOCIAL: Positive Depression and Anxiety Social History SMOKING STATUS: Current some day smoker SUBSTANCE USE: marijuana ED Exam General Limitations: Present no limitations General appearance: Present alert, in no apparent distress and other (Patient is awake alert oriented not in distress nontoxic looking well-hydrated well- nourished) Head Head exam: Present atraumatic, normocephalic and normal inspection Eye Eye exam: Present normal appearance, PERRL and EOMI ENT ENT exam: Present normal exam, normal oropharynx, mucous membranes moist and other (HEENT exam is normal and unremarkable) Neck Neck exam: Present normal inspection, full ROM and trachea midline; Absent tenderness, meningismus, lymphadenopathy or thyromegaly Chest Chest inspection: Present normal inspection and symmetric chest wall rise; Absent tenderness Respiratory Respiratory exam: Present normal lung sounds bilaterally; Absent respiratory distress, wheezes, stridor, accessory muscle use or prolonged expiratory phase Cardiovascular Cardiovascular exam: Present regular rate, normal rhythm and normal heart sounds; Absent bradycardia, tachycardia, irregular rhythm, systolic murmur or diastolic murmur Abdominal Exam Abdominal exam: Present soft and normal bowel sounds; Absent distention, tenderness, guarding, rebound, rigidity, diminished bowel sounds, hyperactive bowel sounds, hypoactive bowel sounds, organomegaly, psoas sign, obturator sign, Rovsing's sign, tenderness at McBurney's Point or ascites Extremities Exam Extremities exam: Present normal inspection and full ROM Back Exam Back exam: Present normal inspection and full ROM Neurological Exam Neurological exam: Present alert, oriented X3, CN II-XII intact, normal gait and reflexes normal; Absent motor sensory deficit Psychiatric Psychiatric exam: Present normal affect and normal mood Skin Skin exam: Present warm, dry, intact, normal color and other (Excellent skin turgor) Course Quality Measures none Orders Category Date Time Status CT abdomen pelvis wo con Stat Exams 10/21/24 00:50 Taken CBC Stat Lab 10/21/24 01:31 Completed Comprehensive Metabolic Panel Stat Lab 10/21/24 01:31 Completed HCG Qualitative,Urine Stat Lab 10/21/24 02:10 Completed Lipase Stat Lab 10/21/24 01:31 Completed Urinalysis Stat Lab 10/21/24 02:10 Completed Ciprofloxacin HCl [Ciprofloxacin] Med 10/21/24 04:36 Discontinued 500 mg PO X1 ONE Famotidine Inj [Pepcid Inj] Med 10/21/24 03:51 Discontinued 20 mg IVP X1 ONE Ondansetron Inj [Zofran Inj] Med 10/21/24 03:51 Discontinued 4 mg IVP X1 ONE Sodium Chloride 0.9% 1000 ml [Ns] 1,000 ml Med 10/21/24 03:52 Active IV 999 mls/hr cefTRIAXone/D5w 1gm IV premix [Rocephin/D5w 1gm IV Med 10/21/24 04:32 Discontinued premix] 1 gm in 50 ml IV X1 metroNIDAZOLE [Flagyl] Med 10/21/24 04:36 Discontinued 500 mg PO X1 ONE Vital Signs Vital signs: Vital Signs Temperature 98.6 F 10/21/24 00:25 Pulse Rate 65 10/21/24 00:25 Respiratory Rate 18 10/21/24 00:25 Blood Pressure 134/75 H 10/21/24 00:25 Pulse Oximetry (%) 99 10/21/24 00:25 Oxygen Delivery Method Room Air 10/21/24 00:25 Patient is a brawl not tachycardic not tachypneic BP stable not hypoxic oxygen saturation is 99% in room air Abdominal Pain MDM MDM Narrative MDM Narrative:: This is a case of 19-year-old female with no medical history came in in the emergency room due to abdominal pain on and off for 5 days associated with nausea vomiting nonprojectile and diarrhea none watery nonbloody no discharge patient was seen here October 17, 2024 and was discharged with vaginal bleeding and influenza A and B patient vaginal bleeding was resolved but due to persistence of the abdominal pain nausea vomiting and diarrhea this patient decided to sought consult here in the emergency room physical examination patient is awake alert oriented not in distress nontoxic looking well-hydrated well-nourished excellent skin turgor lungs sound is clear no crackles no rales no retraction no stridor heart normal rate regular rhythm no murmur abdominal exam is benign nonsurgical no guarding no rebound no rigidity negative psoas negative straight or negative Rovsing's and McBurney's negative Salgado sign negative CVA tenderness blood test showed no leukocytosis no anemia kidney and liver function is normal no electrolyte imbalance urinalysis is normal patient CT scan showed colitis and left ovarian cyst patient was given a bolus of normal saline Zofran for vomiting Pepcid which patient condition markedly improved patient was also started with metronidazole and ciprofloxacin for colitis patient will follow-up with PCP in 2 days for reevaluation and to be referred to parimutuel ticket checker for further evaluation and treatment of colitis and OB precision instrument and tool maker for left ovarian cyst for any worsening symptoms or any emergent concern return precaution to ER was advised Patient was discharged with comfortable condition walking with stable gait. Patient verbalized no further complains explained diagnosis and answered patient question. Patient is comfortable with the proposed management plan including the need to follow up with his/her primary care physician and any specialist if applicable Discussed patient for any urgent condition or worsening sx, He/She needed to go to emergency room immediately or call 911. Patient acknowledge the responsibility to follow up as instructed and to monitor her/his symptoms. For any persistence of the symptoms for more than 3-5 days return precaution advised. Discussed the result of the test and was given printed discharge instruction Patient data External records reviewed:: [facility] previous records Clinical information provided by:: patient Social determinants that could affect healthcare access:: none Patient has the following chronic illnesses:: None How is presenting disease/condition affected by chronic disease/condition?: no chronic disease Evaluation data The following diagnostics were reviewed and interpreted by me:: lab results and radiology exam(s) Lab and/or radiology exams considered but not ordered:: Reviewed Interpretation Summary: Reviewed Medications / Prescriptions Medications or Prescriptions considered but not ordered:: Given Medication administrations:: Medication Administration History Sodium Chloride (Ns) 1,000 mls @ 999 mls/hr IV .Q1H1M ONE Stop: 10/21/24 04:52 Last Infusion: 10/21/24 04:38 Dose: Infused Documented By: Admin: 10/21/24 04:05 Dose: 999 mls/hr Documented By: IVETTE Discontinued Medications Ciprofloxacin (Ciprofloxacin Hcl 250 Mg Tablet) 500 mg PO X1 ONE Stop: 10/21/24 04:37 Famotidine (Famotidine Inj 10 Mg/Ml Vial 2 Ml) 20 mg IVP X1 ONE Stop: 10/21/24 03:52 Last Admin: 10/21/24 04:06 Dose: 20 mg Documented By: IVETTE Ceftriaxone Sodium/Dextrose (Rocephin/D5w 1gm Iv Premix) 1 gm in 50 mls @ 100 mls/hr IV X1 ONE Stop: 10/21/24 05:01 Last Admin: 10/21/24 04:36 Dose: Not Given Documented By: ELAINE Non-Admin Reason: Cancelled by Provider Metronidazole (Metronidazole 250 Mg Tablet) 500 mg PO X1 ONE Stop: 10/21/24 04:37 Ondansetron HCl (Ondansetron Inj 2 Mg/Ml Inj 2 Ml) 4 mg IVP X1 ONE; Protocol Stop: 10/21/24 03:52 Last Admin: 10/21/24 04:06 Dose: 4 mg Documented By: IVETTE Given Consultations Consultation(s) initiated? (list below): No Diagnosis Differential diagnosis abdominal pain: abdominal pain, acute appendicitis, calculus of kidney, constipation, diverticulitis, endometriosis, gastroenteritis and other (Colitis) Most likely diagnosis given after review of the tests above:: Colitis left ovarian cyst Admission Indicated Admission indicated?: not indicated Explain why admission is indicated or not indicated:: Not indicated Admission Request Was there a request for admission?: No Admission Attestation Admission request attestation: Not indicated Disposition Plan Disposition Plan: Discharge Discharge Attestation Discharge Attestation: The patient and all family members were given an opportunity to ask questions and understood the discharge instructions. Discharge instructions specifically effects, indications for sooner follow up or return to the emergency department, and the expected course of current diagnosis. Patient condition: Stable Discharge Plan Plan Patient Disposition: HOME (Self Care) Patient condition on transfer: Stable Prescriptions/Referrals Prescriptions/Med Rec: New ciprofloxacin HCl [Cipro] 500 mg tablet 500 mg PO BID 5 Days Qty: 10 0RF metronidazole 500 mg tablet 500 mg PO BID Qty: 20 0RF ondansetron 4 mg tablet,disintegrating 4 mg PO Q8H PRN (Reason: nausea and vomiting) Qty: 20 0RF loperamide [Imodium A-D] 2 mg capsule 2 mg PO Q6H PRN (Reason: loose stool) Qty: 10 0RF dicyclomine 20 mg tablet 20 mg PO TID PRN (Reason: abdominal pain) Qty: 20 0RF No Action diphenhydramine HCl [Banophen] 50 mg capsule 50 mg PO HS PRN (Reason: Insomnia) Patient Comments: TAKE 1 CAPSULE BY MOUTH ONCE DAILY AT BEDTIME NEEDED fluoxetine 20 mg capsule 20 mg PO DAILY Patient Comments: TAKE 1 CAPSULE BY MOUTH ONCE DAILY IN THE MORNING ibuprofen 800 mg tablet 800 mg PO TID PRN (Reason: pain) Qty: 30 0RF ondansetron 4 mg tablet,disintegrating 4 mg PO Q8H PRN (Reason: nausea and vomiting) Qty: 10 0RF ibuprofen 800 mg tablet 800 mg PO TID PRN (Reason: pain) Qty: 30 0RF ibuprofen 600 mg tablet 600 mg PO Q8H PRN (Reason: fever or pain) Qty: 20 0RF ibuprofen 800 mg tablet 800 mg PO TID PRN (Reason: pain) Qty: 30 0RF ibuprofen 600 mg tablet 600 mg PO Q8H PRN (Reason: pain) Qty: 20 0RF naproxen [Naprosyn] 500 mg tablet 500 mg PO BID PRN (Reason: pain) Qty: 30 0RF Referrals: Pati Lance PA-C [Primary Care Provider] - In 1 week Problem List Clinical Impression: Abdominal pain, Diarrhea, Vomiting, Colitis, Cyst of left ovary Patient/Caregiver Discharge Instructions Education Materials: Abdominal Pain, Understanding Colitis, ED Diarrhea, Unknown Cause, ED Ovarian Cyst, ED Vomiting (Adult) Additional Instructions: Follow-up with your primary care physician in 2 days for reevaluation and to be referred to parimutuel ticket checker for further evaluation and treatment of colitis recurrence persistent worsening symptoms or any emergent concern call 911 or go to the nearest emergency room take your medication as directed finish the course of antibiotic increase water intake keep hydrated spatulate Gatorade for every bouts of vomiting and or diarrhea follow-up with your OB precision instrument and tool maker for further evaluation and treatment of left ovarian cyst Print Language: Palestinian Stand Alone Forms: Kylie Award Info., Work/School Release, Patient Portal Info Letter PA/SPEECH INSTRUCTOR Supervising Physician PA/SPEECH INSTRUCTOR Supervising Physician: Dr. Cornelio Do
[2024-10-21] MEDS: CIPROFLOXACIN HCL 250 MG TABLET 500 MG PO (04:47)
[2024-10-21 04:49] VITALS: BP 126/76; PULSE 72; RESP 16; TEMP 36.8; O2SAT 98
== END 2024-10-21 04:50 | disposition home or self-care (01) ==
PROVIDERS: Nurse Practitioner Family; Emergency Provider Emergency Medicine; PCP Physician Assistant Medical
DX: K52.9 Noninfective gastroenteritis and colitis, unspecified (principal); N83.202 Unspecified ovarian cyst, left side
CPT/HCPCS: 36415; 74176; 80053; 81001; 81025; 83690; 85025; 96361; 96374; 96375; 99283; J2405; J3490; J7030; A9270

== ENCOUNTER 2024-12-09 07:47 | Outpatient (RCR) | payer MEDICAID, SELFPAY | END 2024-12-26 23:59 | disposition home or self-care (01) | LOC: SCTC 07:47 | PROVIDERS: PCP Physician Assistant Medical; Referring Provider Physician Assistant Medical; Visit Provider Nurse Practitioner Family | DX: D72.829 Elevated white blood cell count, unspecified (principal); R61 Generalized hyperhidrosis; R22.1 Localized swelling, mass and lump, neck; F41.9 Anxiety disorder, unspecified; F32.A Depression, unspecified; E66.9 Obesity, unspecified; Z68.32 Body mass index [BMI] 32.0-32.9, adult; R10.9 Unspecified abdominal pain; N92.6 Irregular menstruation, unspecified; R19.5 Other fecal abnormalities; N83.209 Unspecified ovarian cyst, unspecified side | CPT/HCPCS: 99213; G0463 ==

== ENCOUNTER 2025-01-26 13:18 | Outpatient (RCR) | payer MEDICAID, SELFPAY ==
--- NOTE | 2025-01-26 14:44 | CTCFLWUP_ITS ---
Patient: ALISSA ABRAHAM : 2005 Page 2 of 5 FOLLOW UP NOTE DATE OF SERVICE: 01/26/2025 NAME: ALISSA ABRAHAM ACCOUNT: [id number] : 2005 AGE: 19 INTERVAL HISTORY: Anemia /iron deficiency ? patient have heavy periods. Feels fatigue and thinning hair. Patient not sleeping well. She lost her job. She does not sleep well at night. She takes nap in day time . STAGE/TNM: TREATMENT HISTORY: Care?Plan Start?Date Cycle Day Intent HISTORY OF PRESENT ILLNESS: 19-year-old female Alissa Abraham is a 19-year-old female who presents for evaluation of elevated white blood cells, night sweats, and neck swelling. She was referred by her primary care provider due to elevated white blood cell counts of 13.5 documented in April 2024. The patient reports experiencing night sweats and is concerned about this symptom. She describes feeling neck swelling and reports swollen neck lymph nodes that have been present on and off for many months. When swallowing, she feels a pressure pulling movement that is sometimes painful or uncomfortable, lasting a few minutes before resolving. She drinks water to make the symptom go away. Regarding gastrointestinal symptoms, the patient reports abdominal pain and nausea with abdominal discomfort. She describes having darker stools that are sometimes very dark brownish black a, though no red blood in the stool.She has previously been tested for H. pylori with negative results. The patient reports irregular menses and has not seen a billet shearer for this issue. She has a known ovarian cyst on her right ovary . She reports current tobacco and substance use, including vaping, smoking cigarettes, and marijuana use. She states she is not ready to quit smoking. Recent healthcare interactions include CT scan and MRI at [facility], which found her colon to be inflamed. Upcoming appiontment with PCP for results. 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 amitriptyline - 10 mg 1 tab Daily 2. dicyclomine - 20 mg 1 tab Daily 3. Ibuprofen 200 - 200 mg 2 tab As directed 4. ondansetron - 4 mg 1 tab As directed 5. Tylenol - 325 mg 1 tab As directed Medications Last Reconciled by Merly Masters MD on 01/26/2025 ALLERGIES: No Known Drug Allergies REVIEW OF SYSTEMS: A complete 14-point review of systems was performed and is negative except as noted in interval history. PHYSICAL EXAMINATION: VITAL SIGNS: Temperature?99.2, B/P?143/84, Oxygen?Saturation?98% Weight?193?lbs PAIN: 0 - No pain ECOG Performance Status: 1 - Symptomatic; ambulatory; restricted in strenuous activity GENERAL APPEARANCE: Appears well, in no apparent distress, appropriately interactive. HEENT: Normocephalic, no temporal wasting, normal conjunctiva, no scleral icterus, normal hearing, lips without lesions, neck normal range of motion, no neck lymphadenopathy ABDOMINAL: soft, no tenderness CARDIOVASCULAR: Not assessed. PULMONARY: Normal respiratory effort, no respiratory distress or use of accessory muscles, speaking in full sentences, no tachypnea. EXTREMITIES: No pedal edema or cyanosis. SKIN: Normal skin appearance. NEUROLOGIC: Alert and oriented x4. PSHYCHIATRIC: Appropriate affect, mood normal, behavior normal, intact thought and speech, no distress LABORATORY DATA: I have personally reviewed and interpreted each of the patient?s relevant lab tests, abnormal findings are below: Date 10/18/24 10/21/24 ??WHITE?BLOOD?COUNT?(Thou/mm3) 12.8?H 10.6 ??RED?BLOOD?COUNT?(Miln/mm3) 4.17 4.09 ??HEMOGLOBIN?(gm/dl) 12.2 11.8?L ??HEMATOCRIT?(%) 36.8 35.3?L ??PLATELET?COUNT?(Thou/mm3) 333 316 ??NEUTROPHILS?%,?AUTO?(%) 87?H 65 ??LYMPH?%,?AUTO?(%) 7?L 23 ??NEUTROPHILS,?AUTO?(Thou/mm3) 11.1?H 6.9 ??GLUCOSE,RANDOM?(mg/dL) 105 106 ??BLOOD?UREA?NITROGEN?(mg/dL) <?5?L 7?L ??CREATININE?(mg/dL) 0.90 0.90 ??SODIUM?(mmol/L) 140 141 ??POTASSIUM?(mmol/L) 4.1 3.5 ??CHLORIDE?(mmol/L) 105 103 ??AST/SGOT?(Unit/L) 15 16 ??ALT/SGPT?(Unit/L) 10 11 ??ALKALINE?PHOSPHATASE?(Unit/L) 73 65 ??BILIRUBIN,?TOTAL?(mg/dL) 0.3 <?0.2?L ??PROTEIN?TOTAL?(gm/dl) 7.6 7.1 ??ALBUMIN,?SERUM?(gm/dl) 4.7 4.6 ??GLOBULIN?(gm/dl) 2.9 2.5 ??ALBUMIN/GLOBULIN?RATIO 1.6 1.8 ??CALCIUM,?SERUM?(mg/dL) 9.8 10.0 ??CALCIUM?SERUM?(CORRECTED)?(mg/dL) 9.8 10.0 ASSESSMENT/PLAN: Alissa Abraham is a 19-year-old female with elevated white blood cell count, night sweats, neck swelling, abdominal issues, and irregular menses presenting for hematology-oncology evaluation. Iron deficiency Patient complains of fatigue and tiredness Patient's iron saturation is less than 10 Patient have iron deficiency also noted to have MCHC low Will start on iron tablets every other day and reassess in 3 months Patient's B12 is low normal and will start on B12 tablets Given poor nutrition will start on calcium and vitamin D3 Reassess in 3 months Irregular menses and ovarian cyst Assessment: Patient has history of right ovarian cyst and irregular periods. Has not seen billet shearer despite ongoing symptoms. Plan: - Refer to billet shearer for further evaluation and managmene t Neck swelling and discomfort Assessment: Patient reports subjective neck swelling with pressure sensation and discomfort when swallowing, lasting minutes and relieved by drinking water. Symptoms present for months, though physical examination did not reveal palpable lymphadenopathy. Plan: - CT neck was ordered at the last visit As no CT is done will order ultrasound to evaluate soft tissues Obesity Assessment: Patient has BMI of 32, meeting criteria for obesity. Plan: - Lifestyle modifications discussed Poor sleep at night Patient likely have MARKY underlying Feel fatigued in the daytime Take frequent daytime naps to feel fresh Will order sleep study ORDERS: Order # Description [id number] Comprehensive Metabolic Panel - 12 + CBC with Auto Diff [id number] MD Follow Up 3 Months [id number] RETURN TO CLINIC: I reviewed the diagnosis, prognosis, and recommended treatment/procedure options with the patient (and/or their legal reimbursement representative), including the potential benefits, risks, side effects and alternative therapies. We also discussed the option of no treatment and the possibility of clinical trial participation, if applicable. All questions were addressed, and they demonstrated understanding. They provided informed consent to proceed with the proposed plan of care. BILLING AND COMPLIANCE: I reviewed external records from providers outside my specialty as summarized above. I spent a total of 50 minutes on this patient?s care on the day of their visit excluding time spent related to any billed procedures. This time includes time spent with the patient as well as time spent documenting in the medical record, reviewing patients records and tests, obtaining history, placing orders, communicating with other healthcare professionals, counseling the patient, family or caregiver, and/or care coordination for the diagnoses above. Electronically Signed by: Hipolito Vanegas MD T: 2:41 PM CC: PCP: Pati Lance Referring: Pati Lance This document was completed utilizing speech recognition software. Grammatical errors, random word insertions, pronoun errors, and incomplete sentences are an occasional consequence of this system due to software limitations, ambient noise, and hardware issues. Any formal questions or concerns about the content, text or information contained within the body of this dictation should be directly addressed to the provider for clarification.
== END 2025-02-25 23:59 | disposition home or self-care (01) ==
LOC: SCTC 13:18
PROVIDERS: PCP Physician Assistant Medical; Referring Provider Physician Assistant Medical; Visit Provider Internal Medicine Hematology & Oncology
DX: D72.829 Elevated white blood cell count, unspecified (principal); R61 Generalized hyperhidrosis; N92.6 Irregular menstruation, unspecified; R22.1 Localized swelling, mass and lump, neck; E61.1 Iron deficiency; N83.201 Unspecified ovarian cyst, right side; E66.9 Obesity, unspecified; Z68.32 Body mass index [BMI] 32.0-32.9, adult
CPT/HCPCS: 99212; G0463

== ENCOUNTER 2025-01-31 20:03 | Emergency (ER) | payer MEDICAID, SELFPAY ==
[2025-01-31 20:05] VITALS: BMI 32.5
--- NOTE | 2025-01-31 20:09 | EKG_ITS ---
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
[2025-01-31 20:11] VITALS: BP 140/72; PULSE 130; RESP 20; TEMP 37.3; O2SAT 100
[2025-01-31 20:59] LABS: Basophils # (Auto) 0.0 Thou/mm3 (0.0-0.2); Basophils % (Auto) 1 % (0-2.5); Eosinophils # (Auto) 0.2 Thou/mm3 (0.0-0.5); Eosinophils % (Auto) 2 % (0-10); Hematocrit 35.6 % (36.0-46.0); Hemoglobin 11.6 g/dL (12.0-16.0); Immature Granulocytes Auto 0.02 Thou/mm3 (0.00-0.00); Lymphocytes # (Auto) 1.0 Thou/mm3 (1.0-4.8); Lymphocytes % (Auto) 12 % (10-50); Mean Corpuscular HGB Conc 32.6 g/dl (31.0-37.0); Mean Corpuscular Hemoglobin 28.8 pg (25.0-35.0); Mean Corpuscular Volume 88 fL (80-100); Monocytes # (Auto) 0.6 Thou/mm3 (0.0-0.8); Monocytes % (Auto) 7 % (0-12); Neutrophils # (Auto) 6.7 Thou/mm3 (1.8-7.7); Neutrophils % (Auto) 79 % (37-80); Nucleated Red Blood Cell # 0.00 Thou/mm3 (0.00-0.00); Nucleated Red Blood Cell % 0 /100 WBC (0); Platelet Count 346 Thou/mm3 (140-440); RDW Standard Deviation 42.8 fL (36.4-46.3); Red Blood Count 4.03 Miln/mm3 (4.00-5.20); White Blood Count 8.4 Thou/mm3 (4.5-11.0)
[2025-01-31 21:00] LABS: COVID-19 Antigen (In-House) Negative (Negative); Influenza A Ag Positive; Influenza B Ag Negative; Strep A Rapid Negative (Negative)
[2025-01-31 21:24] LABS: Alanine Aminotransferase 15 U/L (10-49); Albumin, Serum 4.9 gm/dL (3.5-5.0); Albumin/Globulin Ratio 2.0 (1.2-2.2); Alkaline Phosphatase 61 U/L (46-116); Anion Gap 8 (7-16); Aspartate Amino Transferase 15 U/L (0-34); BUN/Creatinine Ratio 8 Ratio (12-20); Bilirubin,Total 0.4 mg/dL (0.3-1.2); Blood Urea Nitrogen 6 mg/dL (9-23); Calcium 10.0 mg/dL (8.3-10.6); Calcium (Corrected) 10.0 mg/dL (8.5-10.1); Carbon Dioxide 25.6 mMol/L (20.0-31.0); Chloride 106 mMol/L (98-107); Creatinine (Component) 0.8 mg/dL (0.6-1.3); Estimated Creatinine Clearance 119.2 mL/min (>60); Globulin 2.5 gm/dL (2.3-3.5); Glucose 114 mg/dL (74-106); Osmolality,Calculated 278 (275-295); Potassium 3.9 mMol/L (3.4-5.1); Sodium 140 mMol/L (136-145); Thyroid Stimulating Hormone 0.86 uIU/mL (0.55-4.78); Total Protein 7.4 gm/dL (5.7-8.2); Troponin I < 0.002 ng/mL (0.0-0.045); eGFR > 60 See Note
[2025-01-31 21:45] VITALS: BP 115/73; PULSE 89; RESP 16; TEMP 37.4; O2SAT 98
[2025-01-31] MEDS: ONDANSETRON INJ 2 MG/ML INJ 2 ML 4 MG IVP (22:22)
[2025-01-31] MEDS: SODIUM CHLORIDE 0.9% 1000 ML 1,000 ML 999 ML IV (22:23)
[2025-01-31] MEDS: KETOROLAC INJ 30 MG/ML VIAL IVP (22:23)
--- NOTE | 2025-01-31 23:13 | PD.EDARRY ---
ED Arrhythmia Palp. RME/HPI General Chief Complaint: Dental/Oral/Throat Stated Complaint: LEFT TONSIL SWOLLEN, CHEST PAIN, GOINS, PALPITATIONS Time Seen by Provider: 01/31/25 20:19 Arrival date/time: 01/31/25 20:03 This is a case of 19-year-old female with no medical history came in in the emergency room due to sore throat for 11 days on and off associated with nonproductive cough patient due to persistence of symptoms now with headache chest pain and palpitation this patient decided to sought consult here in the emergency room denies any other symptom Limitations: no limitations Related Data Home Medications ?Medication ?Instructions ?Recorded ?Confirmed diphenhydramine HCl 50 mg capsule 50 mg PO HS PRN Insomnia 04/03/22 04/03/22 (Banophen) fluoxetine 20 mg capsule 20 mg PO DAILY 04/03/22 04/03/22 Previous Rx's ?Medication ?Instructions ?Recorded ibuprofen 800 mg tablet 800 mg PO TID PRN pain #30 tabs 01/29/23 ibuprofen 800 mg tablet 800 mg PO TID PRN pain #30 tabs 01/30/23 ondansetron 4 mg disintegrating 4 mg PO Q8H PRN nausea and 01/30/23 tablet vomiting #10 tabs ibuprofen 800 mg tablet 800 mg PO TID PRN pain #30 tabs 06/25/23 ibuprofen 600 mg tablet 600 mg PO Q8H PRN fever or pain 10/06/23 #20 tabs ibuprofen 600 mg tablet 600 mg PO Q8H PRN pain #20 tabs 03/18/24 naproxen 500 mg tablet (Naprosyn) 500 mg PO BID PRN pain #30 tabs 05/23/24 dicyclomine 20 mg tablet 20 mg PO TID PRN abdominal pain 10/21/24 #20 tabs loperamide 2 mg capsule (Imodium 2 mg PO Q6H PRN loose stool #10 10/21/24 A-D) caps metronidazole 500 mg tablet 500 mg PO BID #20 tabs 10/21/24 ondansetron 4 mg disintegrating 4 mg PO Q8H PRN nausea and 10/21/24 tablet vomiting #20 tabs azithromycin 250 mg tablet 250 mg PO QDAY 6 days #6 tabs 01/31/25 ibuprofen 600 mg tablet 600 mg PO Q8H PRN pain #20 tabs 01/31/25 lidocaine HCl 2 % mucosal solution 10 ml PO Q4HR PRN sore throat #100 01/31/25 (Lidocaine Viscous) mL ondansetron 4 mg disintegrating 4 mg PO Q8H #20 tabs 01/31/25 tablet Allergies Allergy/AdvReac Type Severity Reaction Status Date / Time orange Allergy Severe RASH, Verified 01/31/25 20:04 SWELLING Penicillins Allergy Intermediate SOB Verified 01/31/25 20:04 Review of Systems Review of Systems Systems Reviewed: All systems reviewed, normal except as documented Constitutional Constitutional: Reports system reviewed and no additional complaints, except as documented and Reports as per HPI Cardiovascular Cardiovascular: Reports system reviewed and no additional complaints, except as documented and Reports as per HPI Respiratory Respiratory: Reports system reviewed and no additional complaints, except as documented and Reports as per HPI Gastrointestinal Gastrointestinal: Reports system reviewed and no additional complaints, except as documented and Reports as per HPI Musculoskeletal Musculoskeletal: Reports system reviewed and no additional complaints, except as documented and Reports as per HPI Neurologic Neurologic: Reports system reviewed and no additional complaints, except as documented Past Medical History Past Medical History CARDIAC: Negative Congestive Heart Failure RESPIRATORY: Negative Chronic Obstructive Pulmonary Disease (COPD) GENITOURINARY: Negative Renal Disease ENDOCRINE: Negative Diabetes Mellitus Type 1 or Diabetes Mellitus Type 2 PSYCHO/SOCIAL: Positive Depression and Anxiety Social History SMOKING STATUS: Current every day smoker SUBSTANCE USE: marijuana ED Exam General Limitations: Present no limitations General appearance: Present alert, in no apparent distress and other (Patient is awake alert oriented not in distress nontoxic looking well-hydrated well nourished) Head Head exam: Present atraumatic, normocephalic and normal inspection Eye Eye exam: Present normal appearance, PERRL and EOMI ENT ENT exam: Present normal exam, normal oropharynx, mucous membranes moist and other (Pharynx red the rest of the HEENT exam is normal) Neck Neck exam: Present normal inspection, full ROM, trachea midline and other (Negative meningeal sign); Absent tenderness, meningismus, lymphadenopathy or thyromegaly Chest Chest inspection: Present normal inspection and symmetric chest wall rise; Absent tenderness, rash or abscess Respiratory Respiratory exam: Present normal lung sounds bilaterally; Absent respiratory distress, wheezes, stridor, accessory muscle use or prolonged expiratory phase Cardiovascular Cardiovascular exam: Present regular rate, normal rhythm and normal heart sounds; Absent bradycardia, tachycardia, irregular rhythm, systolic murmur or diastolic murmur Abdominal Exam Abdominal exam: Present soft and normal bowel sounds; Absent distention, tenderness, guarding, rebound, rigidity, diminished bowel sounds, hyperactive bowel sounds, hypoactive bowel sounds or organomegaly Extremities Exam Extremities exam: Present normal inspection and full ROM Back Exam Back exam: Present normal inspection and full ROM Neurological Exam Neurological exam: Present alert, oriented X3, CN II-XII intact, normal gait, reflexes normal and other (Awake alert oriented x 4 no focal deficit GCS 15/15 steady gait memory intact no slurring speech no facial droop motor or sensory reflex are all normal in all extremities negative); Absent motor sensory deficit Psychiatric Psychiatric exam: Present normal affect, normal mood, agitated and other (no hallucination); Absent depressed, anxious, flat affect, manic, homicidal ideation or suicidal ideation Skin Skin exam: Present warm, dry, intact, normal color and other (excellent skin turgor) Course Quality Measures none Orders Category Date Time Status EKG (ED ONLY) *Do not use* NOW Care 01/31/25 20:09 Completed Insert IV NOW Care 01/31/25 22:17 Active EKG (ED Only) Stat Exams 01/31/25 20:09 Draft CBC Stat Lab 01/31/25 20:44 Completed CMP [Comprehensive Metabolic Panel] Stat Lab 01/31/25 20:44 Completed COVID-19 Antigen (In-House) Stat Lab 01/31/25 20:22 Completed Influenza A & B Rapid Panel Stat Lab 01/31/25 20:22 Completed Strep A Rapid Stat Lab 01/31/25 20:22 Completed TSH [Thyroid Stimulating Hormone] Stat Lab 01/31/25 20:44 Completed Troponin I Stat Lab 01/31/25 20:44 Completed DiphenhydrAMINE INJ [Benadryl Inj] Med 01/31/25 21:58 Discontinued 25 mg IVP X1 ONE Ketorolac Inj [Toradol Inj] Med 01/31/25 21:58 Discontinued 30 mg IVP X1 ONE Ondansetron Inj [Zofran Inj] Med 01/31/25 21:58 Discontinued 4 mg IVP X1 ONE Sodium Chloride 0.9% 1000 ml [Ns] 1,000 ml Med 01/31/25 21:38 Discontinued IV 999 mls/hr Sodium Chloride 0.9% 1000 ml [Ns] 1,000 ml Med 01/31/25 21:58 Discontinued IV 999 mls/hr Vital Signs Vital signs: Vital Signs Temperature 99.2 F 01/31/25 20:11 Pulse Rate 130 H 01/31/25 20:11 Respiratory Rate 20 01/31/25 20:11 Blood Pressure 140/72 H 01/31/25 20:11 Pulse Oximetry (%) 100 01/31/25 20:11 Oxygen Delivery Method Room Air 01/31/25 20:11 Patient heart rate improved without medication patient latest heart rate is 81-90 patient is not hypoxic oxygen saturation is 100% Arrhythmia/Palpitations MDM Narrative MDM Narrative:: This is a case of 19-year-old female with no medical history came in in the emergency room due to sore throat for 11 days on and off associated with nonproductive cough patient due to persistence of symptoms now with headache chest pain and palpitation this patient decided to sought consult here in the emergency room denies any other symptom physical examination patient is awake alert oriented not in distress nontoxic looking well-hydrated well-nourished patient vital signs as follows BP stable patient is tachycardic at 130 nontachypneic not hypoxic oxygen saturation is ranging to 96 to 100% and afebrile no signs and symptoms of sepsis patient has excellent skin turgor lungs sound is clear no crackles no rales no wheezing no retraction no stridor HEENT exam showed pharynx were red but tonsils were normal no swelling no exudate no redness no peritonsillar abscess no drooling of saliva patient heart noted to be mildly tachycardic normal rhythm no murmur no pitting edema abdominal exam is benign nonsurgical no guarding no rebound no rigidity negative meningeal sign neurological exam is normal awake alert oriented x 4 no focal deficit GCS 15/15 steady gait CN II to XII is normal motor or sensory reflex were normal memory intact no slurring speech no facial droop negative Babinski I continue to monitor the patient heart rate patient after 30 minutes heart rate went down to 80-89 without medication I think the patient chest pain and palpitation is not cardiopulmonary pathology possible anxiety patient strep throat is negative patient COVID is negative patient is positive for influenza A I did not prescribe Tamiflu because the symptoms is more than 3 days patient has no leukocytosis no anemia kidney and liver function is normal no electrolyte imbalance urinalysis is normal patient denies any her LMP was 3 weeks ago patient troponin is negative TSH is also negative EKG was sinus tach but no Q T wave or ST elevation or abnormality based on my physical examination and history I do not need any imaging patient neurological exam is normal and unremarkable patient headache is possible due to influenza A patient was given a bolus of normal saline Toradol for pain Benadryl and Zofran for headache cocktail after 1 hour patient was reassessed patient condition markedly improved patient has no chest pain no palpitation no headache patient heart rate is 81-90 at this point patient will be discharged home with stable condition patient still was given azithromycin due to 11-day old sore throat patient was given also lidocaine viscous for sore throat ibuprofen and Zofran for headache she was advised to see a neurologist for her headache she was also advised to see a software engineering project manager for chest pain and palpitation she was advised to see PCP in 2 days for reevaluation and for any worsening symptoms or any emergent concern return precaution in the ER is advised Patient data External records reviewed:: [facility] previous records Clinical information provided by:: patient Social determinants that could affect healthcare access:: none Patient has the following chronic illnesses:: None How is presenting disease/condition affected by chronic disease/condition?: no chronic disease Evaluation data The following diagnostics were reviewed and interpreted by me:: lab results, radiology exam(s) and EKG tracing(s) Lab and/or radiology exams considered but not ordered:: Reviewed Interpretation Summary: Reviewed Medications / Prescriptions Medications or Prescriptions considered but not ordered:: Given Medication administrations:: Medication Administration History Discontinued Medications Diphenhydramine HCl (Diphenhydramine Inj 50 Mg/Ml Vial) 25 mg IVP X1 ONE Stop: 01/31/25 21:59 Last Admin: 01/31/25 22:22 Dose: 25 mg Documented By: BD Sodium Chloride (Ns) 1,000 mls @ 999 mls/hr IV .Q1H1M ONE Stop: 01/31/25 22:38 Last Admin: 01/31/25 21:49 Dose: Not Given Documented By: BD Non-Admin Reason: Cancelled by Provider Sodium Chloride (Ns) 1,000 mls @ 999 mls/hr IV .Q1H1M ONE Stop: 01/31/25 22:58 Last Infusion: 01/31/25 23:11 Dose: Infused Documented By: Admin: 01/31/25 22:23 Dose: 999 mls/hr Documented By: BD Ketorolac Tromethamine (Ketorolac Inj 30 Mg/Ml Vial) 30 mg IVP X1 ONE Stop: 01/31/25 21:59 Last Admin: 01/31/25 22:23 Dose: 30 mg Documented By: BD Ondansetron HCl (Ondansetron Inj 2 Mg/Ml Inj 2 Ml) 4 mg IVP X1 ONE; Protocol Stop: 01/31/25 21:59 Last Admin: 01/31/25 22:22 Dose: 4 mg Documented By: BD Given Consultations Consultation(s) initiated? (list below): Yes Consultation #1 (Physician, Specialty, Details): Dr. Kashif Bradley discussed patient condition history and physical examination agreed that the patient chest pain and palpitation is not due to to cardiopulmonary pathology possible anxiety. Agreed with the treatment plan and the discharge Diagnosis Differential diagnosis arrhythmia/palpitations: palpitations, anxiety and sinus tachycardia Most likely diagnosis given after review of the tests above:: Palpitation chest pain headache acute pharyngitis influenza A Admission Indicated Admission indicated?: not indicated Explain why admission is indicated or not indicated:: Not indicated Admission Request Was there a request for admission?: No Admission Attestation Admission request attestation: Not indicated Disposition Plan Disposition Plan: Discharge Discharge Attestation Discharge Attestation: The patient and all family members were given an opportunity to ask questions and understood the discharge instructions. Discharge instructions specifically effects, indications for sooner follow up or return to the emergency department, and the expected course of current diagnosis. Patient condition: Stable Discharge Plan Plan Patient Disposition: HOME (Self Care) Patient condition on transfer: Stable Prescriptions/Referrals Prescriptions/Med Rec: New azithromycin 250 mg tablet 250 mg PO QDAY 6 Days Qty: 6 0RF Rx Instructions: start on day 2 of therapy lidocaine HCl [Lidocaine Viscous] 2 % solution 10 ml PO Q4HR PRN (Reason: sore throat) Qty: 100 0RF ibuprofen 600 mg tablet 600 mg PO Q8H PRN (Reason: pain) Qty: 20 0RF ondansetron 4 mg tablet,disintegrating 4 mg PO Q8H Qty: 20 0RF No Action diphenhydramine HCl [Banophen] 50 mg capsule 50 mg PO HS PRN (Reason: Insomnia) Patient Comments: TAKE 1 CAPSULE BY MOUTH ONCE DAILY AT BEDTIME NEEDED fluoxetine 20 mg capsule 20 mg PO DAILY Patient Comments: TAKE 1 CAPSULE BY MOUTH ONCE DAILY IN THE MORNING ibuprofen 800 mg tablet 800 mg PO TID PRN (Reason: pain) Qty: 30 0RF ondansetron 4 mg tablet,disintegrating 4 mg PO Q8H PRN (Reason: nausea and vomiting) Qty: 10 0RF ibuprofen 800 mg tablet 800 mg PO TID PRN (Reason: pain) Qty: 30 0RF ibuprofen 600 mg tablet 600 mg PO Q8H PRN (Reason: fever or pain) Qty: 20 0RF ibuprofen 800 mg tablet 800 mg PO TID PRN (Reason: pain) Qty: 30 0RF ibuprofen 600 mg tablet 600 mg PO Q8H PRN (Reason: pain) Qty: 20 0RF naproxen [Naprosyn] 500 mg tablet 500 mg PO BID PRN (Reason: pain) Qty: 30 0RF metronidazole 500 mg tablet 500 mg PO BID Qty: 20 0RF ondansetron 4 mg tablet,disintegrating 4 mg PO Q8H PRN (Reason: nausea and vomiting) Qty: 20 0RF loperamide [Imodium A-D] 2 mg capsule 2 mg PO Q6H PRN (Reason: loose stool) Qty: 10 0RF dicyclomine 20 mg tablet 20 mg PO TID PRN (Reason: abdominal pain) Qty: 20 0RF Referrals: Abhijit Desai MD [Primary Care Provider, Family Practice] - In 1 week Problem List Clinical Impression: Acute pharyngitis, Influenza A, Headache, Chest pain of unknown etiology, Palpitation Patient/Caregiver Discharge Instructions Education Materials: When You Have a Sore Throat, Self-Care for Headaches, ED Chest Pain, Uncertain Cause, ED Influenza (Adult), ED Palpitations Additional Instructions: Follow-up with your primary care physician in 2 days for reevaluation for any persistent regarding symptoms need to see a neurologist for headache worsening symptoms or any emergent concerns such as headache nausea vomiting dizziness blurring of vision shortness of breath chest pain numbness weakness tingling sensation return to the emergency room immediately or call 911 take your medication as directed finish the course of antibiotic warm saline gargle increase water intake keep hydrated Pedialyte Gatorade for hydration is advised follow-up with your primary care physician to be referred to software engineering project manager for your chest pain and palpitation for possible echocardiogram stress test and Holter monitor Print Language: Greek Stand Alone Forms: Kylie Award Info., Patient Portal Info Letter PA/SOFTWARE SALES EXECUTIVE Supervising Physician PA/SOFTWARE SALES EXECUTIVE Supervising Physician: Dr. Gallego
== END 2025-01-31 23:14 | disposition home or self-care (01) ==
PROVIDERS: Nurse Practitioner Family; Emergency Provider Emergency Medicine; PCP Family Medicine
DX: J10.1 Influenza due to other identified influenza virus with other respiratory manifestations (principal); R00.2 Palpitations; R00.0 Tachycardia, unspecified; F17.210 Nicotine dependence, cigarettes, uncomplicated
CPT/HCPCS: 36415; 80053; 84443; 84484; 85025; 87502; 87651; 87811; 93005; 96361; 96374; 96375; 99283; J1200; J1885; J2405; J7030

== ENCOUNTER 2025-02-03 09:42 | Emergency (ER) | payer MEDICAID, SELFPAY ==
[2025-02-03 10:16] VITALS: BP 122/81; PULSE 88; RESP 20; TEMP 38.4; O2SAT 98
[2025-02-03 10:37] VITALS: BMI 30.8
--- NOTE | 2025-02-03 11:23 | PD.EDRME ---
Rapid Medical Screening Exam [facility] Arrival date/time: 02/03/25 09:42 Chief Complaint: Headache Vital signs: Vital Signs Temperature 101.1 F H 02/03/25 10:16 Pulse Rate 88 02/03/25 10:16 Respiratory Rate 20 02/03/25 10:16 Blood Pressure 122/81 02/03/25 10:16 Pulse Oximetry (%) 98 02/03/25 10:16 Oxygen Delivery Method Room Air 02/03/25 10:16 [facility] Narrative: 19-year-old female complaining of feeling sick for the past 2 weeks with cough congestion sore throat now with myalgias, fever, nausea, vomiting, headache x 2 days, patient states she was seen here given Tamiflu without improvement as she was diagnosed with influenza A and is requesting further workup. Exam: Head: Normocephalic, atraumatic. Respiratory: Normal effort. No respiratory distress or accessory muscle use. Neuro: Speech normal. Skin: Warm, dry, normal color. Psych: Pleasant. Normal affect. Cooperative. Clinical Impression: Headache
--- NOTE | 2025-02-03 11:25 | XR_ITS ---
Examination: CT brain head without contrast. 2-D sagittal coronal reconstructions Date and time of exam: February 03, 2025, 1146 hours INDICATIONS: Generalized head pain today CTDI: vol (mGy): 45.1 DLP: (mGycm): 834 Technique: Multiple CT axial sections of the brain have been obtained, 5 mm slice thickness. Contrast has not been administered. 2-D sagittal, coronal reconstructions have been obtained Low dose protocols were performed. One or more of the following dose reduction techniques were used; automated exposure control, adjustment of the mA and/or KV according to patient size, use of iterative reconstruction technique. Findings: No significant ventricular enlargement. Intra-axial or extra-axial hemorrhage density is not seen. No mass effect or midline shift Basal cisterns are not remarkable. Fourth ventricle is midline. Cranial vault intact. Impression: Negative for acute hemorrhage, mass effect or midline shift
--- NOTE | 2025-02-03 11:27 | XR_ITS ---
EXAMINATION: PA lateral chest 2 views TECHNIQUE: Upright PA lateral chest 2 views Date and time: February 03, 2025, 1152 hours, comparison May 23, 2024 INDICATIONS: Coughing congestion beginning 2 weeks ago. FINDINGS: Normal heart size. Lungs are clear. Intact osseous structures IMPRESSION: No active disease seen
[2025-02-03 11:54] LABS: Lactate (Lactic Acid) 0.9 mMol/L (0.4-2.0)
[2025-02-03 11:55] LABS: Basophils # (Auto) 0.0 Thou/mm3 (0.0-0.2); Basophils % (Auto) 0 % (0-2.5); Eosinophils # (Auto) 0.0 Thou/mm3 (0.0-0.5); Eosinophils % (Auto) 0 % (0-10); Hematocrit 35.7 % (36.0-46.0); Hemoglobin 11.8 g/dL (12.0-16.0); Immature Granulocytes Auto 0.00 Thou/mm3 (0.00-0.00); Lymphocytes # (Auto) 1.0 Thou/mm3 (1.0-4.8); Lymphocytes % (Auto) 28 % (10-50); Mean Corpuscular HGB Conc 33.1 g/dl (31.0-37.0); Mean Corpuscular Hemoglobin 29.0 pg (25.0-35.0); Mean Corpuscular Volume 88 fL (80-100); Monocytes # (Auto) 0.4 Thou/mm3 (0.0-0.8); Monocytes % (Auto) 10 % (0-12); Neutrophils # (Auto) 2.3 Thou/mm3 (1.8-7.7); Neutrophils % (Auto) 62 % (37-80); Nucleated Red Blood Cell # 0.00 Thou/mm3 (0.00-0.00); Nucleated Red Blood Cell % 0 /100 WBC (0); Platelet Count 246 Thou/mm3 (140-440); RDW Standard Deviation 42.9 fL (36.4-46.3); Red Blood Count 4.07 Miln/mm3 (4.00-5.20); White Blood Count 3.7 Thou/mm3 (4.5-11.0)
[2025-02-03 11:56] LABS: Collection Type, Urine Clean Catch
[2025-02-03] MEDS: ONDANSETRON ODT 4 MG TABRAP PO (12:00)
[2025-02-03] MEDS: KETOROLAC INJ 30 MG/ML VIAL IM (12:02)
[2025-02-03 12:04] LABS: HCG Qualitative,Urine Negative
[2025-02-03 12:10] LABS: Bacteria,Urine Rare; Bilirubin,Urine Negative (Negative); Blood,Urine 3+ (Negative); Clarity,Urine Turbid (Clear/Hazy); Color,Urine Lt-Yellow (Lt Yel-Yel); Culture Indicated,Urine Not Indicated; Glucose, Urine Negative (Negative); Ketones,Urine Negative (Negative); Leukocyte Esterase,Urine Negative (Negative); Nitrite,Urine Negative (Negative); PH,Urine 6.0 (5.0-7.0); Protein,Urine Negative (Neg - Trace); RBC,Urine 3 /hpf (0-3); Specific Gravity,Urine 1.016 (1.001-1.035); Squamous Epithelial Cell,Urine 5 /hpf (0-5); Urobilinogen,Urine Negative mg/dL (0.0-1.0); WBC,Urine 1 /hpf (0-5)
[2025-02-03 12:21] LABS: INR 1.0 (0.9-1.3); Prothrombin Time 10.9 Seconds (9.0-12.2)
[2025-02-03 12:23] LABS: Alanine Aminotransferase 30 U/L (10-49); Albumin, Serum 4.5 gm/dL (3.5-5.0); Albumin/Globulin Ratio 1.7 (1.2-2.2); Alkaline Phosphatase 54 U/L (46-116); Anion Gap 8 (7-16); Aspartate Amino Transferase 43 U/L (0-34); BUN/Creatinine Ratio 6 Ratio (12-20); Bilirubin,Total 0.2 mg/dL (0.3-1.2); Blood Urea Nitrogen < 5 mg/dL (9-23); Calcium 8.9 mg/dL (8.3-10.6); Calcium (Corrected) 8.9 mg/dL (8.5-10.1); Carbon Dioxide 25.7 mMol/L (20.0-31.0); Chloride 108 mMol/L (98-107); Creatinine (Component) 0.8 mg/dL (0.6-1.3); Estimated Creatinine Clearance 115.8 mL/min (>60); Globulin 2.7 gm/dL (2.3-3.5); Glucose 94 mg/dL (74-106); Lipase 37 U/L (12-53); Osmolality,Calculated 280 (275-295); Potassium 3.9 mMol/L (3.4-5.1); Procalcitonin 0.06 ng/ml (0.0-0.49); Sodium 142 mMol/L (136-145); Total Protein 7.2 gm/dL (5.7-8.2); eGFR > 60 See Note
--- NOTE | 2025-02-03 13:46 | PD.EDHA ---
ED Headache RME/HPI General Chief Complaint: Headache Stated Complaint: SEVERE HEADACHE, BACK/L) SIDE PAIN Time Seen by Provider: 02/03/25 13:46 Arrival date/time: 02/03/25 09:42 RME / HPI RME / HPI Narrative: 19-year-old female complaining of feeling sick for the past 2 weeks with cough congestion sore throat now with myalgias, fever, nausea, vomiting, gradual onset headache x 2 days, patient states she was seen here given Tamiflu without improvement as she was diagnosed with influenza A and is requesting further workup. Exam: Head: Normocephalic, atraumatic. Respiratory: Normal effort. No respiratory distress or accessory muscle use. Neuro: Speech normal. Skin: Warm, dry, normal color. Psych: Pleasant. Normal affect. Cooperative. Impression: Headache Related Data Home Medications ?Medication ?Instructions ?Recorded ?Confirmed diphenhydramine HCl 50 mg capsule 50 mg PO HS PRN Insomnia 04/03/22 04/03/22 (Banophen) fluoxetine 20 mg capsule 20 mg PO DAILY 04/03/22 04/03/22 Previous Rx's ?Medication ?Instructions ?Recorded ibuprofen 800 mg tablet 800 mg PO TID PRN pain #30 tabs 01/29/23 ibuprofen 800 mg tablet 800 mg PO TID PRN pain #30 tabs 01/30/23 ondansetron 4 mg disintegrating 4 mg PO Q8H PRN nausea and 01/30/23 tablet vomiting #10 tabs ibuprofen 800 mg tablet 800 mg PO TID PRN pain #30 tabs 06/25/23 ibuprofen 600 mg tablet 600 mg PO Q8H PRN fever or pain 10/06/23 #20 tabs ibuprofen 600 mg tablet 600 mg PO Q8H PRN pain #20 tabs 03/18/24 naproxen 500 mg tablet (Naprosyn) 500 mg PO BID PRN pain #30 tabs 05/23/24 dicyclomine 20 mg tablet 20 mg PO TID PRN abdominal pain 10/21/24 #20 tabs loperamide 2 mg capsule (Imodium 2 mg PO Q6H PRN loose stool #10 10/21/24 A-D) caps metronidazole 500 mg tablet 500 mg PO BID #20 tabs 10/21/24 ondansetron 4 mg disintegrating 4 mg PO Q8H PRN nausea and 10/21/24 tablet vomiting #20 tabs azithromycin 250 mg tablet 250 mg PO QDAY 6 days #6 tabs 01/31/25 ibuprofen 600 mg tablet 600 mg PO Q8H PRN pain #20 tabs 01/31/25 lidocaine HCl 2 % mucosal solution 10 ml PO Q4HR PRN sore throat #100 01/31/25 (Lidocaine Viscous) mL ondansetron 4 mg disintegrating 4 mg PO Q8H #20 tabs 01/31/25 tablet Allergies Allergy/AdvReac Type Severity Reaction Status Date / Time orange Allergy Severe RASH, Verified 02/03/25 09:46 SWELLING Penicillins Allergy Intermediate SOB Verified 02/03/25 09:46 ED Exam Narrative Physical exam: Constitutional: Patient alert and oriented. Well appearing. No acute distress. Not toxic appearing. Head: Normocephalic, atraumatic. Eyes: Periorbital regions bilaterally normal to inspection. Conjunctiva clear bilaterally. Sclera anicteric bilaterally. Pupils equal, round, reactive to light bilaterally. Extraocular movements intact bilaterally. Ears: External ears normal to inspection bilaterally. No mastoid tenderness bilaterally. EAC without edema or exudate bilaterally. TMs without erythema or bulging. Mouth/Throat: Positive erythematous cobblestoning of oropharynx. Mucous membranes moist. No stridor or muffled voice. Uvula midline. Rise and fall of soft palate normal. No tonsillar edema or exudate. No peritonsillar fullness. No trismus. Handling secretions without difficulty. Airway widely patent. Neck: Supple. Trachea midline. No JVD. No nuchal rigidity. No midline tenderness or step-offs. Normal range of motion. No meningismus or nuchal rigidity. Respiratory: Normal effort. No accessory muscle use or respiratory distress. Lungs clear to auscultation bilaterally without rhonchi, wheezes, or crackles. Cardiovascular: RRR. Normal S1/S2. No murmurs or rubs. Radial pulses intact bilaterally. Abdomen: Soft. Non-distended. Non-tender throughout. No pulsatile mass. No guarding or rebound. Negative Salgado?s sign. Negative McBurney?s point tenderness. Negative Rovsing?s. Back: No midline tenderness or step-offs. No CVA tenderness to palpation bilaterally. Upper Extremities: No gross deformities. Lower Extremities: No gross deformities. No edema or calf tenderness. Neuro: Speech normal. No gross motor or sensory deficits to upper or lower extremities bilaterally. GCS 15. CN II?XII grossly intact. Skin: Warm, dry, normal color. Psych: Normal affect. Cooperative. Normal insight. Course Quality Measures none Orders Category Date Time Status Continuous Pulse Oximetry STAT Care 02/03/25 11:27 Active Insert IV NOW Care 02/03/25 11:27 Active NPO STAT Care 02/03/25 11:27 Active Strict Intake and Output Routine Care 02/03/25 11:[address] head/brain wo con Stat Exams 02/03/25 11:25 Completed XR chest 2V Stat Exams 02/03/25 11:27 Completed Blood Culture (Lab) Stat Lab 02/03/25 11:38 Received CBC Stat Lab 02/03/25 11:38 Completed Comprehensive Metabolic Panel Stat Lab 02/03/25 11:38 Completed HCG Qualitative,Urine Stat Lab 02/03/25 11:30 Completed Lactate (Lactic Acid) Stat Lab 02/03/25 11:38 Completed Lipase Stat Lab 02/03/25 11:38 Completed Procalcitonin Stat Lab 02/03/25 11:38 Completed Prothrombin Time with INR Stat Lab 02/03/25 11:38 Completed Urinalysis, C/S if Indicated Stat Lab 02/03/25 11:30 Completed Ketorolac Inj [Toradol Inj] Med 02/03/25 11:25 Discontinued 30 mg IM X1 ONE Ondansetron Odt [Zofran Odt] Med 02/03/25 11:29 Discontinued 4 mg PO X1 ONE Oxygen Delivery NOW RT 02/03/25 11:27 Active Vital Signs Vital signs: Vital Signs Temperature 101.1 F H 02/03/25 10:16 Pulse Rate 88 02/03/25 10:16 Respiratory Rate 20 02/03/25 10:16 Blood Pressure 122/81 02/03/25 10:16 Pulse Oximetry (%) 98 02/03/25 10:16 Oxygen Delivery Method Room Air 02/03/25 10:16 Headache MDM Narrative MDM Narrative:: This patient has been diagnosed with a viral illness. A careful history and physical exam, and laboratory testing as appropriate, show no signs of meningitis, pneumonia, or other serious viral or bacterial infection. Lab work is notable for mild leukopenia with a white count of 3.7, mild anemia with a hemoglobin of 11.8, mild the low hematocrit at 35.7. Chloride minimally elevated 108, AST minimally elevated 43 otherwise no severe metabolic or electrolyte abnormality. Chest x-ray without acute cardiopulmonary abnormality. CT brain without acute intracranial abnormality. I considered antibiotics; however, given viral etiology, it is not indicated. The patient is told that viral illness is a presumptive diagnosis and if improvement is not occurring within several days or if symptoms change or worsen, a re-evaluation needs to be done with the PMD or in the ED to make sure a more serious, as yet undiagnosable, problem is not occurring. Patient data External records reviewed:: [facility] previous records Clinical information provided by:: family Social determinants that could affect healthcare access:: none Patient has the following chronic illnesses:: None How is presenting disease/condition affected by chronic disease/condition?: uneffected by Evaluation data The following diagnostics were reviewed and interpreted by me:: lab results and radiology exam(s) Lab and/or radiology exams considered but not ordered:: Additional Labs and radiology considered, but not ordered as they were not clinically indicated at this time. Interpretation Summary: As noted Medications / Prescriptions Medications or Prescriptions considered but not ordered:: I ordered medications based on the patient?s clinical needs and assessment, as documented in the chart. For medications not prescribed, they were not indicated for the patient's current condition, and I determined they were unnecessary at this time to avoid potential risks or complications. Medication administrations:: Medication Administration History Discontinued Medications Ketorolac Tromethamine (Ketorolac Inj 30 Mg/Ml Vial) 30 mg IM X1 ONE Stop: 02/03/25 11:26 Last Admin: 02/03/25 12:02 Dose: 30 mg Documented By: Ondansetron HCl (Ondansetron Odt 4 Mg Tabrap) 4 mg PO X1 ONE; Protocol Stop: 02/03/25 11:30 Last Admin: 02/03/25 12:00 Dose: 4 mg Documented By: As noted Consultations Consultation(s) initiated? (list below): No Diagnosis Differential diagnosis headache: other Most likely diagnosis given after review of the tests above:: Acute viral syndrome Admission Indicated Admission indicated?: not indicated Admission Request Was there a request for admission?: No Disposition Plan Disposition Plan: Discharge Discharge Attestation Discharge Attestation: The patient and all family members were given an opportunity to ask questions and understood the discharge instructions. Discharge instructions specifically effects, indications for sooner follow up or return to the emergency department, and the expected course of current diagnosis. Patient condition: Stable Discharge Plan Plan Patient Disposition: HOME (Self Care) Patient condition on transfer: Stable Prescriptions/Referrals Prescriptions/Med Rec: No Action diphenhydramine HCl [Banophen] 50 mg capsule 50 mg PO HS PRN (Reason: Insomnia) Patient Comments: TAKE 1 CAPSULE BY MOUTH ONCE DAILY AT BEDTIME NEEDED fluoxetine 20 mg capsule 20 mg PO DAILY Patient Comments: TAKE 1 CAPSULE BY MOUTH ONCE DAILY IN THE MORNING ibuprofen 800 mg tablet 800 mg PO TID PRN (Reason: pain) Qty: 30 0RF ondansetron 4 mg tablet,disintegrating 4 mg PO Q8H PRN (Reason: nausea and vomiting) Qty: 10 0RF ibuprofen 800 mg tablet 800 mg PO TID PRN (Reason: pain) Qty: 30 0RF ibuprofen 600 mg tablet 600 mg PO Q8H PRN (Reason: fever or pain) Qty: 20 0RF ibuprofen 800 mg tablet 800 mg PO TID PRN (Reason: pain) Qty: 30 0RF ibuprofen 600 mg tablet 600 mg PO Q8H PRN (Reason: pain) Qty: 20 0RF naproxen [Naprosyn] 500 mg tablet 500 mg PO BID PRN (Reason: pain) Qty: 30 0RF metronidazole 500 mg tablet 500 mg PO BID Qty: 20 0RF ondansetron 4 mg tablet,disintegrating 4 mg PO Q8H PRN (Reason: nausea and vomiting) Qty: 20 0RF loperamide [Imodium A-D] 2 mg capsule 2 mg PO Q6H PRN (Reason: loose stool) Qty: 10 0RF dicyclomine 20 mg tablet 20 mg PO TID PRN (Reason: abdominal pain) Qty: 20 0RF azithromycin 250 mg tablet 250 mg PO QDAY 6 Days Qty: 6 0RF Rx Instructions: start on day 2 of therapy lidocaine HCl [Lidocaine Viscous] 2 % solution 10 ml PO Q4HR PRN (Reason: sore throat) Qty: 100 0RF ibuprofen 600 mg tablet 600 mg PO Q8H PRN (Reason: pain) Qty: 20 0RF ondansetron 4 mg tablet,disintegrating 4 mg PO Q8H Qty: 20 0RF Referrals: Pati Lance PA-C [Primary Care Provider] - In 1 week Problem List Clinical Impression: Viral illness Patient/Caregiver Discharge Instructions Print Language: Brazilian Stand Alone Forms: Kylie Award Info., Patient Portal Info Letter PA/HOUSEHOLD PERSONAL ASSISTANT Supervising Physician PA/HOUSEHOLD PERSONAL ASSISTANT Supervising Physician: Dr. Perales
[2025-02-03 15:01] VITALS: TEMP 36.8
[2025-02-03 15:03] VITALS: TEMP 36.8
== END 2025-02-03 15:03 | disposition home or self-care (01) ==
PROVIDERS: Emergency Provider Physician Assistant; PCP Physician Assistant Medical
DX: B34.9 Viral infection, unspecified (principal)
CPT/HCPCS: 36415; 70450; 71046; 80053; 81001; 81025; 83605; 83690; 84145; 85025; 85610; 87040; 96372; 99283; J1885; Q0162